=== PATIENT | male | born 1990 | race Caucasian/White ===

== ENCOUNTER 2016-07-15 18:36 | Inpatient (IN) | payer MEDICARE, MEDICAID ==
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
[2016-07-15] MEDS ORDERED: ACETAMINOPHEN TAB 325 MG TAB PO PRN (23:29)
[2016-07-15] MEDS ORDERED: MAG HYDROX/AL HYDROX/SIMETH 30 ML CUP PO PRN (23:29)
[2016-07-15] MEDS ORDERED: MAGNESIUM HYDROXIDE 2,400 MG/10 ML CUP PO PRN (23:29)
[2016-07-16] MEDS: LORazepam 1 MG TAB PO PRN ×3 (01:09→15:27)
[2016-07-16] MEDS: risperiDONE 2 MG TAB PO SCH ×2 (08:50→20:12)
[2016-07-16] MEDS: FAMOTIDINE 20 MG TAB PO SCH ×2 (08:50→20:11)
[2016-07-16 09:26] LABS: ALT 24 U/L (21-72); AST 25 U/L (17-59); Alkaline Phosphatase 110 U/L (38-126); Anion Gap 14 mmol/L; Blood Urea Nitrogen 12 mg/dL (9-20); Calcium 9.4 mg/dL (8.4-10.2); Carbon Dioxide 25 mmol/L (22-30); Chloride 100 mmol/L (98-107); Glucose 181 mg/dL (74-99); Non-African American GFR(MDRD) >60 (>60 ml/min/1.73 sqM); Potassium 3.8 mmol/L (3.5-5.1); Sodium 139 mmol/L (137-145); Total Bilirubin 0.9 mg/dL (0.2-1.3); Total Protein 7.5 g/dL (6.3-8.2)
[2016-07-16 09:32] LABS: Basophils % (A) 0 %; CH 28.3; CHCM 32.4; Eosinophils % (A) 1 %; HCT 45.4 % (39.0-53.0); HDW 2.53; HGB 14.7 gm/dL (13.0-17.5); Large Platelets Flag Moderate; Luc % (Auto) 1; Lymphocytes % (A) 15 %; MCH 28.5 pg (25.0-35.0); MCHC 32.5 g/dL (31.0-37.0); MCV 87.7 fL (80.0-100.0); Mean Platelet Volume 10.8; Monocytes # (A) 0.3 k/uL (0-1.0); Monocytes % (A) 4 %; Neutrophils # (A) 5.4 k/uL (1.3-7.7); Neutrophils % (A) 78 %; RBC 5.17 m/uL (4.30-5.90); RDW 15.1 % (11.5-15.5); WBC 6.9 k/uL (3.8-10.6); WBC (Perox) 6.66
[2016-07-16 09:54] LABS: Polychromasia Present
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
--- NOTE | 2016-07-16 12:44 | P.CONS ---
History of Present Illness - Reason for Consult Consult date: 07/16/16 Medical management - History of Present Illness Patient refuses to be seen by medical team. Past Medical History Past Medical History: No Reported History History of Any Multi-Drug Resistant Organisms: None Reported Additional Past Surgical History / Comment(s): Esophigial surgery Past Psychological History: ADD/ADHD, Bipolar, Depression Smoking Status: Never smoker Past Alcohol Use History: None Reported Past Drug Use History: None Reported Medications and Allergies Home Medications Medication Instructions Recorded Confirmed Type Ritalin Sr 20 Mg Tab 20 mg PO DAILY 01/18/16 07/15/16 History LORazepam [Ativan] 0.5 mg PO TID 07/15/16 07/15/16 History Ranitidine HCl 150 mg PO BID 07/15/16 07/15/16 History risperiDONE [RisperDAL] 2 mg PO HS 07/15/16 07/15/16 History risperiDONE [RisperDAL] 4 mg PO QAM 07/15/16 07/15/16 History Allergies Allergy/AdvReac Type Severity Reaction Status Date / Time Penicillins Allergy Rash/Hives Verified 07/15/16 19:23 Sulfa (Sulfonamide Allergy Rash/Hives Verified 07/15/16 19:23 Antibiotics) Physical Exam Vitals: Vital Signs Temp Pulse Pulse Resp BP BP Pulse Ox 07/16/16 03:41 91 16 117/70 07/15/16 22:54 97.7 F 93 16 134/79 96 07/15/16 22:25 98.1 F 92 18 127/88 100 Intake and Output 07/15/16 07/16/16 07/16/16 22:59 06:59 14:59 Other: Weight 70.76 kg 71.3 kg Patient Weight 07/17/16 06:59 Weight 71.3 kg Results CBC & Chem 7: 07/16/16 08:52 07/16/16 08:52 Labs: Abnormal Lab Results - Last 24 Hours (Table) 07/16/16 07/16/16 Range/Units 08:52 08:52 Plt Count 67 L (150-450) k/uL Glucose 181 H (74-99) mg/dL
[2016-07-16] MEDS: OLANZapine ODT 10 MG TAB PO PRN (21:07)
[2016-07-16] MEDS: cloNIDine HCL 0.1 MG TAB PO SCH (22:58)
[2016-07-16] MEDS: MIRTAZAPINE 15 MG TAB PO PRN (22:58)
[2016-07-17] MEDS: cloNIDine HCL 0.1 MG TAB PO SCH ×3 (08:43→20:48)
[2016-07-17] MEDS: FAMOTIDINE 20 MG TAB PO SCH ×2 (08:44→20:48)
[2016-07-17] MEDS: risperiDONE 2 MG TAB PO SCH ×2 (08:44→20:49)
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
[2016-07-17] MEDS: LORazepam 1 MG TAB PO PRN ×2 (13:46→23:59)
[2016-07-17] MEDS: OLANZapine ODT 10 MG TAB PO PRN (14:00)
[2016-07-17] MEDS: MIRTAZAPINE 15 MG TAB PO PRN (20:50)
[2016-07-18] MEDS ORDERED: WATER FOR INJECTION, STERILE 10 ML IV ONE ×2 (00:31→11:42)
[2016-07-18] MEDS ORDERED: ZIPRASIDONE 20 MG VIAL IM ONE ×2 (00:31→11:42)
[2016-07-18] MEDS: ZIPRASIDONE 20 MG VIAL IM PRN ×2 (00:31→11:42)
[2016-07-18] MEDS: cloNIDine HCL 0.1 MG TAB PO SCH ×3 (09:16→20:01)
[2016-07-18] MEDS: risperiDONE 2 MG TAB PO SCH ×2 (09:16→20:00)
[2016-07-18] MEDS: LORazepam 1 MG TAB PO PRN ×2 (09:16→16:16)
[2016-07-18] MEDS: FAMOTIDINE 20 MG TAB PO SCH ×2 (09:16→20:00)
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
[2016-07-18] MEDS: lamoTRIgine 25 MG TAB PO SCH ×2 (10:56→20:01)
[2016-07-18] MEDS ORDERED: LORazepam 2 MG/ML SYRINGE IM STA (11:56)
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
[2016-07-19] MEDS: cloNIDine HCL 0.1 MG TAB PO SCH ×3 (09:05→21:29)
[2016-07-19] MEDS: risperiDONE 2 MG TAB PO SCH ×2 (09:05→19:58)
[2016-07-19] MEDS: lamoTRIgine 25 MG TAB PO SCH ×2 (09:05→19:58)
[2016-07-19] MEDS: FAMOTIDINE 20 MG TAB PO SCH ×2 (09:06→19:58)
--- NOTE | 2016-07-19 09:46 | P.PN ---
Progress Note - Text Interval history: The patient is found in the hallway he follows me to an interview room. Yesterday staff informed me that the patient required use of restraints for acutely agitated behavior. He is not able to provide an explanation as to what made him upset and lacks insight into his choices. He states that he slept last night appetite is stable. Again he reports having another supportive conversation with his father. He states he will attend groups today. Mental status exam: The patient is alert he has a disheveled appearance his hair is not combed eye contact is poor. He has no spontaneous speech but does provide brief answers to questions asked. During the session he works on removing a piece of candy from a Trapper and is focused on that activity. He is dressed in a T-shirt and the same pajama bottoms. He reports his mood is "fine". He is not able to demonstrate insight into his impulsive aggressive behavior. Cognitively he is chronically impaired. He demonstrates no abnormal involuntary movements. He demonstrates no verbal or physical aggressiveness in the session area Plan: The patient will continue his current medication we have just recently added Lamictal. The patient's blood pressure again is elevated he remains tachycardic. He refuses an EKG that was recommended. We will contact the commercial lines assistant to see if there is a recommendation for controlling blood pressure and pulse better perhaps a beta ashely instead of Catapres. We will continue to monitor him for safety and provide reality orientation and encourage his appropriate participation in the milieu. He is not yet appropriate for discharge given his recent impulsive aggressive behavior.
[2016-07-19] MEDS: LORazepam 1 MG TAB PO PRN ×2 (14:16→22:37)
[2016-07-19] MEDS: MIRTAZAPINE 15 MG TAB PO PRN (22:37)
[2016-07-20] MEDS: lamoTRIgine 25 MG TAB PO SCH ×2 (08:50→20:31)
[2016-07-20] MEDS: cloNIDine HCL 0.1 MG TAB PO SCH ×3 (08:50→20:31)
[2016-07-20] MEDS: risperiDONE 2 MG TAB PO SCH ×2 (08:50→20:31)
[2016-07-20] MEDS: FAMOTIDINE 20 MG TAB PO SCH ×2 (08:50→20:31)
[2016-07-20] MEDS: LORazepam 1 MG TAB PO PRN (08:51)
--- NOTE | 2016-07-20 10:53 | P.PN ---
Progress Note - Text Interval history: The patient is found at the front desk manager he follows me to an interview room. He reports having some difficulty sleeping last night and subsequently he took a nap this morning. Appetite is stable. He reports having a supportive visit from his father last evening. He does look forward to going home when possible. Staff report no aggressive behavior yesterday or this morning. The patient continues to be compliant with medication. He has no medication questions he is reporting no side effects from the Lamictal we have initiated. Mental status exam: The patient has a disheveled appearance hygiene is fair eye contact is improved. Speech is mainly reactive to questions asked but he has some spontaneous speech. Affect remains bland. He reports no suicidal or homicidal ideation. He is endorsing no thoughts of anger or violence. He is endorsing no auditory or visual hallucinations. Insight and judgment are chronically impaired, cognitive abilities are chronically impaired. He demonstrates no verbal or physical aggressiveness during our session. Plan: The patient will continue on his current medications we will continue to monitor for safety he is encouraged to participate in the milieu. Social work has been in contact with his father who remained supportive. We will continue to assess his safety risk. Vital signs reviewed we are monitoring his tachycardia and blood pressure.
[2016-07-20] MEDS ORDERED: WATER FOR INJECTION, STERILE 10 ML IV ONE (14:18)
[2016-07-20] MEDS ORDERED: LORazepam 2 MG/ML SYRINGE IM STA ×2 (14:19→14:54)
[2016-07-20] MEDS ORDERED: LORazepam 2 MG/ML SYRINGE ONE (14:19)
[2016-07-20] MEDS: ZIPRASIDONE 20 MG VIAL IM PRN (14:19)
[2016-07-20] MEDS ORDERED: HALOPERIDOL LACTATE 5 MG/ML 1 ML VIAL IM STA ×2 (14:55)
[2016-07-20] MEDS ORDERED: HALOPERIDOL LACTATE 5 MG/ML 1 ML VIAL ONE (14:55)
[2016-07-20] MEDS: MIRTAZAPINE 15 MG TAB PO PRN (20:59)
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
[2016-07-21] MEDS: PROPRANOLOL 20 MG TAB PO SCH ×2 (09:00→20:59)
[2016-07-21] MEDS: risperiDONE 2 MG TAB PO SCH ×2 (09:00→20:59)
[2016-07-21] MEDS: lamoTRIgine 25 MG TAB PO SCH ×2 (09:00→20:59)
[2016-07-21] MEDS: FAMOTIDINE 20 MG TAB PO SCH ×2 (09:00→20:59)
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
[2016-07-21] MEDS: LORazepam 1 MG TAB PO PRN ×2 (15:26→21:53)
[2016-07-21] MEDS: MIRTAZAPINE 15 MG TAB PO PRN (23:33)
[2016-07-22] MEDS: ZIPRASIDONE 20 MG VIAL IM PRN (00:05)
[2016-07-22] MEDS ORDERED: ZIPRASIDONE 20 MG VIAL IM ONE (00:05)
[2016-07-22] MEDS ORDERED: WATER FOR INJECTION, STERILE 10 ML IV ONE (00:05)
[2016-07-22] MEDS: PROPRANOLOL 20 MG TAB PO SCH ×2 (08:40→20:57)
[2016-07-22] MEDS: lamoTRIgine 25 MG TAB PO SCH ×2 (08:41→20:57)
[2016-07-22] MEDS: risperiDONE 2 MG TAB PO SCH ×2 (08:41→20:57)
[2016-07-22] MEDS: FAMOTIDINE 20 MG TAB PO SCH ×2 (08:41→20:57)
--- NOTE | 2016-07-22 12:02 | P.PN ---
Progress Note - Text Interval history: Patient seen in cross coverage today for Dr. Rodriguez. He reports that he is having another good day today after having a good day yesterday. He inquires regarding when he can get out of the hospital. He reports that he slept about 6 hours last night and relays that he is eating well. Reports that he is getting along well with others today. He does not voice any adverse psychotropic medication side effects. Mental status exam: He is alert and cooperative with the interview. His affect overall is restricted. His mood seems to be doing well. He denies any hallucinations. He denies any thoughts of harm to self or others. He does not show any current agitation. Plan: Maintain current psychotropic medications. We'll monitor for any medication side effects. We'll monitor for any agitation. Will continue to cover this patient for Dr. Rodriguez through the weekend.
[2016-07-23] MEDS: LORazepam 1 MG TAB PO PRN ×2 (00:19→18:39)
[2016-07-23] MEDS: MIRTAZAPINE 15 MG TAB PO PRN (00:56)
[2016-07-23] MEDS: FAMOTIDINE 20 MG TAB PO SCH ×2 (08:43→20:39)
[2016-07-23] MEDS: risperiDONE 2 MG TAB PO SCH ×2 (08:43→20:38)
[2016-07-23] MEDS: PROPRANOLOL 20 MG TAB PO SCH ×2 (08:43→20:37)
[2016-07-23] MEDS: lamoTRIgine 25 MG TAB PO SCH ×2 (08:44→20:38)
--- NOTE | 2016-07-23 15:07 | P.PN ---
Progress Note - Text Interval history: Patient seen in cross coverage today for Dr. Rodriguez. He reports that he did sleep well last night after moving to the quiet room. He does not seem to voice any adverse psychotropic medication side effects. He seems to be getting along well with others. He does talk about wanting to be able to be discharged soon. New Mental status exam: He is alert and cooperative with the interview. His mood overall seems to be improved. He denies any thoughts of harm to self or others. He is not verbalize any hallucinations or jon delusions. He does not show any current agitation. Plan: We'll maintain current psychotropic medication regimen. We'll continue to monitor for any medication side effects and monitor for any agitation. Dr. Alcantara or colleague will resume care this patient starting tomorrow.
[2016-07-24] MEDS: FAMOTIDINE 20 MG TAB PO SCH ×2 (08:39→20:08)
[2016-07-24] MEDS: lamoTRIgine 25 MG TAB PO SCH ×2 (08:39→20:08)
[2016-07-24] MEDS: risperiDONE 2 MG TAB PO SCH ×2 (08:39→20:08)
[2016-07-24] MEDS: PROPRANOLOL 20 MG TAB PO SCH ×2 (08:39→20:08)
[2016-07-24] MEDS: LORazepam 1 MG TAB PO PRN ×2 (15:08→23:01)
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
[2016-07-24] MEDS: MIRTAZAPINE 15 MG TAB PO PRN (20:08)
[2016-07-25 06:26] VITALS: BP 133/89; PULSE 91; RESP 16; TEMP 98.3
[2016-07-25] MEDS: PROPRANOLOL 20 MG TAB PO SCH (09:14)
[2016-07-25] MEDS: risperiDONE 2 MG TAB PO SCH (09:14)
[2016-07-25] MEDS: lamoTRIgine 25 MG TAB PO SCH (09:14)
[2016-07-25] MEDS: FAMOTIDINE 20 MG TAB PO SCH (09:14)
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
== END 2016-07-25 11:43 | disposition home or self-care (01) | DRG 885 ==
LOC: EEVIPCON 18:36 → EC 18:36 → 3MHU 22:17
PROVIDERS: ADMIT Psychiatry & Neurology Psychiatry; ATTEND Psychiatry & Neurology Psychiatry
DX: F31.9 Bipolar disorder, unspecified (principal); Z78.1 Physical restraint status; F41.9 Anxiety disorder, unspecified; F63.81 Intermittent explosive disorder; F90.9 Attention-deficit hyperactivity disorder, unspecified type; M25.539 Pain in unspecified wrist; R00.0 Tachycardia, unspecified; R45.850 Homicidal ideations; G47.9 Sleep disorder, unspecified; R45.1 Restlessness and agitation; S51.812A Laceration without foreign body of left forearm, initial encounter; F09 Unspecified mental disorder due to known physiological condition; R03.0 Elevated blood-pressure reading, without diagnosis of hypertension; Z88.0 Allergy status to penicillin; Z81.8 Family history of other mental and behavioral disorders; Z79.899 Other long term (current) drug therapy; Z88.2 Allergy status to sulfonamides; Z91.5 Personal history of self-harm; Z56.0 Unemployment, unspecified; Z82.0 Family history of epilepsy and other diseases of the nervous system; Z71.6 Tobacco abuse counseling; Z91.19 Patient's noncompliance with other medical treatment and regimen; X78.8XXA Intentional self-harm by other sharp object, initial encounter; Y93.9 Activity, unspecified; Y92.019 Unspecified place in single-family (private) house as the place of occurrence of the external cause
CPT/HCPCS: 80053; 80306; 82075; 84443; 85025; 99285

== ENCOUNTER 2016-07-26 12:00 | Inpatient (IN) | payer MEDICARE, MEDICAID ==
--- NOTE | 2016-07-26 13:00 | ED ---
General Adult HPI - General Chief complaint: Psychiatric Symptoms Stated complaint: MENTAL HEALTH Time Seen by Provider: 07/26/16 12:49 Source: patient, family, RN notes reviewed Mode of arrival: ambulatory Limitations: no limitations - History of Present Illness Initial comments: Patient is a 25-year-old male presenting with family for anger problems. Patient was just discharged from mental health facility. Patient feels his meds are not working. Patient has had anger problems and has made threats. Patient states he had some suicidal thoughts yesterday however decided it would not be worth acting on. No hallucinations. No physical complaints. No alcohol or street drug use. - Related Data Home Medications Medication Instructions Recorded Confirmed Ranitidine HCl 150 mg PO BID 07/15/16 07/26/16 Atomoxetine HCl [Strattera] 100 mg PO DAILY 07/26/16 07/26/16 Previous Rx's Medication Instructions Recorded Loratadine [Claritin] 10 mg PO DAILY #30 tab 01/26/16 Montelukast [Singulair] 10 mg PO HS #30 tab 01/26/16 LORazepam [Ativan] 0.5 mg PO TID #45 tablet 07/25/16 Mirtazapine [Remeron] 15 mg PO HS PRN #30 tab 07/25/16 Propranolol [Inderal] 20 mg PO BID #60 tab 07/25/16 lamoTRIgine [LaMICtal] 25 mg PO BID #60 tab 07/25/16 risperiDONE [RisperDAL] 2 mg PO HS #30 tab 07/25/16 risperiDONE [RisperDAL] 4 mg PO QAM #60 tab 07/25/16 Allergies Allergy/AdvReac Type Severity Reaction Status Date / Time Penicillins Allergy Rash/Hives Verified 07/26/16 12:51 Sulfa (Sulfonamide Allergy Rash/Hives Verified 07/26/16 12:51 Antibiotics) Review of Systems ROS Statement: Those systems with pertinent positive or pertinent negative responses have been documented in the HPI. ROS Other: All systems not noted in ROS Statement are negative. Constitutional: Denies: fever Eyes: Denies: eye pain ENT: Denies: ear pain Respiratory: Denies: cough Cardiovascular: Denies: chest pain Endocrine: Denies: fatigue Gastrointestinal: Denies: abdominal pain Genitourinary: Denies: dysuria Musculoskeletal: Denies: back pain Skin: Denies: rash Psychiatric: Reports: other (Agitation) Past Medical History Past Medical History: No Reported History History of Any Multi-Drug Resistant Organisms: None Reported Additional Past Surgical History / Comment(s): Esophigial surgery Past Psychological History: ADD/ADHD, Bipolar, Depression Smoking Status: Never smoker Past Alcohol Use History: None Reported Past Drug Use History: None Reported General Exam Limitations: no limitations General appearance: alert, in no apparent distress Head exam: Present: atraumatic Eye exam: Present: normal appearance ENT exam: Present: normal exam Neck exam: Present: normal inspection Respiratory exam: Present: normal lung sounds bilaterally Cardiovascular Exam: Present: regular rate, normal rhythm GI/Abdominal exam: Present: soft. Absent: tenderness Extremities exam: Present: normal inspection Neurological exam: Present: alert Psychiatric exam: Present: normal affect, normal mood Skin exam: Absent: rash Course Vital Signs 07/26/16 12:23 Temperature 98.3 F Pulse Rate 80 Respiratory 18 Rate Blood Pressure 113/78 O2 Sat by Pulse 97 Oximetry Procedures - Restraint - Face to Face Restraint Occurrence 1 Patient's Immediate Situation: Endangers self safety, Endangers others' safety, Endangers staff safety, Violent behavior Patient's Reaction to the Intervention: Hostile Patient's Medical & Behavioral Condition: Alert Need to Continue or Terminate Restraint or Seclusion: Continue Face to Face Eval of Restraint Date: 07/26/16 Face to Face Eval of Restraint Time: 13:13 Medical Decision Making - Medical Decision Making Patient was seen by mental health services who will admit. Positive clinical certificate completed. - Lab Data Lab Results 07/26/16 Range/Units 14:30 Urine Opiates Screen Not Detected (NotDetected) Ur Oxycodone Screen Not Detected (NotDetected) Urine Methadone Screen Not Detected (NotDetected) Ur Propoxyphene Screen Not Detected (NotDetected) Ur Barbiturates Screen Not Detected (NotDetected) U Tricyclic Antidepress Not Detected (NotDetected) Ur Phencyclidine Scrn Not Detected (NotDetected) Ur Amphetamines Screen Not Detected (NotDetected) U Methamphetamines Scrn Not Detected (NotDetected) U Benzodiazepines Scrn Not Detected (NotDetected) Urine Cocaine Screen Not Detected (NotDetected) U Marijuana (THC) Screen Not Detected (NotDetected) Disposition Clinical Impression: Mood disorder, Intermittent explosive disorder, Acute psychosis Disposition: TRANSFER TO PSYCH HOSP/UNIT
[2016-07-26] MEDS ORDERED: MAG HYDROX/AL HYDROX/SIMETH 30 ML CUP PO PRN (20:15)
[2016-07-26] MEDS ORDERED: MAGNESIUM HYDROXIDE 2,400 MG/10 ML CUP PO PRN (20:15)
[2016-07-26] MEDS ORDERED: ZIPRASIDONE 20 MG VIAL IM PRN (20:15)
[2016-07-26] MEDS ORDERED: ACETAMINOPHEN TAB 325 MG TAB PO PRN (20:15)
[2016-07-26] MEDS ORDERED: MIRTAZAPINE 15 MG TAB PO PRN (20:24)
[2016-07-26] MEDS ORDERED: LORazepam 2 MG/ML SYRINGE IM PRN (20:26)
[2016-07-26] MEDS: FAMOTIDINE 20 MG TAB PO SCH (21:11)
[2016-07-26] MEDS: lamoTRIgine 25 MG TAB PO SCH (21:11)
[2016-07-26] MEDS: risperiDONE 2 MG TAB PO SCH (21:12)
[2016-07-26] MEDS: PROPRANOLOL 20 MG TAB PO SCH (21:12)
[2016-07-26] MEDS: MONTELUKAST 10 MG TAB PO SCH (21:12)
[2016-07-27] MEDS: FAMOTIDINE 20 MG TAB PO SCH ×2 (08:18→21:00)
[2016-07-27] MEDS: risperiDONE 2 MG TAB PO SCH ×2 (08:19→20:57)
[2016-07-27] MEDS: PROPRANOLOL 20 MG TAB PO SCH ×3 (08:20→21:01)
[2016-07-27] MEDS: lamoTRIgine 25 MG TAB PO SCH (08:20)
[2016-07-27] MEDS: LORATADINE 10 MG TAB PO SCH (08:20)
--- NOTE | 2016-07-27 10:22 | P.HP ---
Psychiatric H&P - . History & Physical: Allergies Allergy/AdvReac Type Severity Reaction Status Date / Time Penicillins Allergy Rash/Hives Verified 07/26/16 12:51 Sulfa (Sulfonamide Allergy Rash/Hives Verified 07/26/16 12:51 Antibiotics) Vital Signs Temp 98.3 F 07/26/16 20:28 Pulse 110 H 07/26/16 20:28 Resp 18 07/26/16 20:28 BP 163/100 07/26/16 20:28 Pulse Ox 97 07/26/16 12:23 Intake & Output 07/26/16 07/27/16 07/27/16 18:59 06:59 18:59 Weight 71.67 kg Laboratory Last Values Urine Opiates Screen Not Detected (NotDetected) 07/26/16 14:30 Ur Oxycodone Screen Not Detected (NotDetected) 07/26/16 14:30 Urine Methadone Screen Not Detected (NotDetected) 07/26/16 14:30 Ur Propoxyphene Screen Not Detected (NotDetected) 07/26/16 14:30 Ur Barbiturates Screen Not Detected (NotDetected) 07/26/16 14:30 U Tricyclic Antidepress Not Detected (NotDetected) 07/26/16 14:30 Ur Phencyclidine Scrn Not Detected (NotDetected) 07/26/16 14:30 Ur Amphetamines Screen Not Detected (NotDetected) 07/26/16 14:30 U Methamphetamines Scrn Not Detected (NotDetected) 07/26/16 14:30 U Benzodiazepines Scrn Not Detected (NotDetected) 07/26/16 14:30 Urine Cocaine Screen Not Detected (NotDetected) 07/26/16 14:30 U Marijuana (THC) Screen Not Detected (NotDetected) 07/26/16 14:30 07/27/16 10:07 IDENTIFYING DATA: This patient is a 25-year-old single male who was readmitted to the mental health unit through the emergency room. HPI: The patient was just recently discharged from the mental health unit and re -presented with symptoms of aggression at home. He was brought in by family they stated he was making threats of violence and was agitated. The patient was able to demonstrate appropriate behavior for several days prior to discharge. Staff informed me that he had made threatening statements towards me since being readmitted. This morning he stated "you have me on too many pills". We discussed the purpose of each medication and the fact that I did confer with his outpatient psychiatrist during the last admission. He initially refused to speak with me in an interview room but later agreed. The patient's discussed been unhappy with his placement with his father. We had discussed his living arrangement several times during the last admission and he did not report been unhappy in that environment area he is now stating that he wants to go to was mother's home but family were not agreeable with that request yesterday. The patient is known to have significant cognitive impairment, history of intermittent explosive disorder, and history of mood symptoms. He is reporting no auditory or visual hallucinations he is endorsing no specific delusions. He reports his mood is been frustrated and angry. He does not feel sad. He is endorsing no anxiety at this time. He has been readmitted for safety reasons and we will consider a change of residence for him during this admission. PAST PSYCHIATRIC HISTORY: The patient has had at least 5 prior admissions the first one was at age 16. [facility] for medication management. He has been tried on numerous psychotropic medications and during the last admission we continued his Risperdal 4 mg in the morning 2 mg at bedtime we initiated Inderal 20 mg twice daily with a plan of titrating that further and we initiated Lamictal 25 mg twice daily. Remeron was initiated at bedtime. He also uses Strattera 100 mg daily at home and Ativan 0.5 mg 3 times daily. It is unknown if he has had any suicide attempts. PMH: None reported ALLERGIES: Penicillin and sulfa MEDICATIONS: As above CHEMICAL DEPENDENCY HISTORY: He reports no use of alcohol marijuana or any other illicit drug. He has never been placed in residential treatment. FAMILY PSYCHIATRIC HISTORY: The patient has previously reported that his mother suffers from depression and ADHD he states 2 cousins committed suicide one by overdose and the other by hanging FAMILY CHEMICAL DEPENDENCY HISTORY: Unknown SOCIAL HISTORY: The patient is 25 years old, he's never been he has no children he is unemployed. He is on a disability income. He resides with his father and appears to listen to music. He expresses an interest in art and enjoyed a [employer] class that he took in the past. No legal history that he reports no abuse history that he reports. There was some mention during last admission that his father can have a "short fuse". MENTAL STATUS EXAM: The patient is alert he has a disheveled appearance his hairs overgrown he is dressed in his own clothing. Eye contact is poor. Speech can be fluent it is abrupt at times because of his cognitive impairment he has difficulty modulating the tone at times. He does make blunt statements. He endorses an angry mood with frustration. He states "my medications don't work" earlier this morning he is observed hitting the table with his hand and making aggressive statements but that has not continued and he is responsive to supportive interventions. Insight and judgment are poor. He continues to struggle with impulsive aggressiveness. This behavior often does not cause self injury but is a demonstration of his mood. He does make salacious statements at times to indicate his frustration and does seem to respond to having those concerns validated in an appropriate manner. He is endorsing no auditory or visual hallucinations he is reporting no specific delusions. He demonstrates no abnormal involuntary movements. He is oriented to person place and date. He refuses to engage in any other cognitive testing other than spelling world forward. STRENGTHS/WEAKNESSES: Income, housing, family support, outpatient care with [facility] weaknesses cognitive impairment poor coping skills INTELLECTUAL FUNCTIONING: Below average IMPRESSIONS: [] 1. Depression unspecified, intermittent explosive disorder, cognitive impairment 2. Psychosocial dysfunction due to impulsive aggressive speech and actions PLAN: The patient has been admitted to the mental health unit for his impulsive aggressive behavior and speech. I have titrated the Inderal to 20 mg 3 times daily we will monitor his vital signs this will be held for any bradycardia or hypotension. Lamictal will be increased to 100 mg daily. He will continue on Risperdal 4 mg in the morning 2 mg at bedtime. At this point I will discontinue the Remeron in case it is activating him and he is concerned about being on too many medications. Our goal is to control mood swings irritability aggressive speech and behavior. We will consider a change of residence for him his father is his guardian. Social work will meet with the patient to complete a psychosocial assessment. The patient will be evaluated by the operator for routine medical exam. We will provide reality orientation we will monitor him for safety.
[2016-07-27] MEDS: LORazepam 1 MG TAB PO PRN ×2 (12:21→22:18)
--- NOTE | 2016-07-27 15:11 | P.CONS ---
History of Present Illness - Reason for Consult Consult date: 07/27/16 Medical management - History of Present Illness This is a 25-year-old male patient of Dr. Granados with a past medical history of ADHD, bipolar, depression, intellectual disability. Patient states that his medications were not working and he denies being suicidal or depressed. Patient was brought in to [facility] by police. Urine drug screen was negative. Patient has been admitted to the mental health unit. Review of Systems All systems: negative Constitutional: Denies chills, Denies fever Eyes: denies blurred vision, denies pain Ears, nose, mouth and throat: Denies headache, Denies sore throat Cardiovascular: Denies chest pain, Denies shortness of breath Respiratory: Denies cough Gastrointestinal: Denies abdominal pain, Denies diarrhea, Denies nausea, Denies vomiting Musculoskeletal: Denies myalgias Integumentary: Denies pruritus, Denies rash Neurological: Denies numbness, Denies weakness Psychiatric: Denies anxiety, Denies depression Endocrine: Denies fatigue, Denies weight change Past Medical History Past Medical History: No Reported History History of Any Multi-Drug Resistant Organisms: None Reported Additional Past Surgical History / Comment(s): Esophigial surgery Past Psychological History: ADD/ADHD, Bipolar, Depression Smoking Status: Never smoker Past Alcohol Use History: None Reported Additional Past Alcohol Use History / Comment(s): Patient is a lifelong nonsmoker. He denies any medical marijuana, marijuana, street drug or alcohol use. Past Drug Use History: None Reported - Past Family History Father Family Medical History: Pulmonary Embolus Additional Family Medical History / Comment(s): Father is alive at age 60 with no major medical problems. Mother Additional Family Medical History / Comment(s): Patient does not know his mother but no she has an alcohol abuse problem and that she is alive. Brother(s) Additional Family Medical History / Comment(s): Patient has 1 brother that of SIDS. He also has 3 siblings which she does not know their medical history. Medications and Allergies Home Medications Medication Instructions Recorded Confirmed Type Ranitidine HCl 150 mg PO BID 07/15/16 07/26/16 History Atomoxetine HCl [Strattera] 100 mg PO DAILY 07/26/16 07/26/16 History Allergies Allergy/AdvReac Type Severity Reaction Status Date / Time Penicillins Allergy Rash/Hives Verified 07/26/16 12:51 Sulfa (Sulfonamide Allergy Rash/Hives Verified 07/26/16 12:51 Antibiotics) Physical Exam Vitals: Vital Signs Temp Pulse Resp BP 07/26/16 20:28 98.3 F 110 H 18 163/100 Intake and Output 07/26/16 07/27/16 07/27/16 22:59 06:59 14:59 Other: Weight 71.67 kg Gen: This is a 25-year-old male. He is cooperative. HEENT: Head is atraumatic, normocephalic. Pupils equal, round. Sclerae is anicteric. NECK: Supple. No JVD. No lymphadenopathy. No thyromegaly. LUNGS: Clear to auscultation. No wheezes or rhonchi. No intercostal retractions. HEART: Regular rate and rhythm. No murmur. ABDOMEN: Soft. Bowel sounds are present. No masses. No tenderness. EXTREMITIES: No pedal edema. No calf tenderness. NEUROLOGICAL: Patient is awake, alert and oriented x3. Cranial nerves 2 through 12 are grossly intact. Assessment and Plan Plan: 1. Depression. Patient admitted to the mental health unit. Continue current plan of care. 2. Seasonal ALLERGIES. Continue Claritin and Singulair. 3. Hypertension. Continue Inderal 20 mg 3 times daily. 4. Gastroesophageal reflux disease. Continue Pepcid. 5. No tobacco use. No need for nicotine patch. Impression and plan of care have been directed as dictated by the signing physician. Donna Mata nurse practitioner acting as scribe for signing physician. Time with Patient: Greater than 30
[2016-07-27] MEDS: MONTELUKAST 10 MG TAB PO SCH (20:57)
[2016-07-28] MEDS: PROPRANOLOL 20 MG TAB PO SCH ×3 (09:13→20:17)
[2016-07-28] MEDS: risperiDONE 2 MG TAB PO SCH ×2 (09:13→20:16)
[2016-07-28] MEDS: LORATADINE 10 MG TAB PO SCH (09:13)
[2016-07-28] MEDS: lamoTRIgine 100 MG TAB PO SCH (09:13)
[2016-07-28] MEDS: FAMOTIDINE 20 MG TAB PO SCH ×2 (09:13→20:16)
[2016-07-28] MEDS: LORazepam 1 MG TAB PO PRN ×2 (09:14→19:52)
--- NOTE | 2016-07-28 10:24 | P.PN ---
Progress Note - Text Interval history: The patient is found in the hallway he follows me to an interview room. He states that his mood is better. He inquires as to when he can be discharged and he would prefer to go to his mother's father's order [facility] only if necessary. So far other has been no report of agitated behavior yesterday but I will discuss his behavior during team meeting this morning. He initially refused medications yesterday but he states he is compliant with them now. He did have a deferral conference with his trademark attorney this morning and it appears he deferred. He states that he did not sleep as well without the Remeron and asks that that be reordered. Mental status exam: The patient is alert his grooming is improved eye contact is improved. He makes attempts at using humor today. He reports his mood is good. He demonstrates no verbal or physical aggressiveness but typically he does not in the sessions. We discussed the need for him to verbalize concerns before acting on them physically. He reports no acute suicidal or homicidal ideation. He is endorsing no auditory or visual hallucinations he is endorsing no specific delusions. Chronically he does have a suspicious nature. No abnormal involuntary movements observed. Insight and judgment chronically limited. Intellectually he's chronically limited. Plan: The patient will continue on his current medications we will reorder the Remeron 15 mg at bedtime. Vital signs are reviewed he is tolerating the propranolol with the increased dose. Lamictal has recently been increased. We will continue to monitor him for safety and encourage him to verbalize concerns versus acting on them physically. We will explore appropriate placement options. His father who is his guardian states that his mother's residence is not appropriate.
[2016-07-28] MEDS: MONTELUKAST 10 MG TAB PO SCH (20:16)
[2016-07-28] MEDS: MIRTAZAPINE 15 MG TAB PO SCH (20:16)
[2016-07-29] MEDS: lamoTRIgine 100 MG TAB PO SCH (08:53)
[2016-07-29] MEDS: FAMOTIDINE 20 MG TAB PO SCH ×2 (08:53→21:05)
[2016-07-29] MEDS: PROPRANOLOL 20 MG TAB PO SCH ×3 (08:53→21:05)
[2016-07-29] MEDS: risperiDONE 2 MG TAB PO SCH ×2 (08:53→21:05)
[2016-07-29] MEDS: LORATADINE 10 MG TAB PO SCH (08:53)
[2016-07-29] MEDS: LORazepam 1 MG TAB PO PRN (15:25)
--- NOTE | 2016-07-29 19:39 | PN ---
DATE OF SERVICE: 07/29/2016 CHIEF COMPLAINT: The patient was admitted following a recent discharge due to problems with aggression at home. He was making threats of violence. He was agitated. INTERVAL HISTORY: Patient has been doing fairly well. He has had some ups and downs. He has been able to come to staff when he has had anxiety and agitation. He has received Ativan, which seems to help him. He received a dose of Ativan last evening around 8 p.m. he received another dose today around 3. He has attended some groups, though probably misses more than he makes. He is out on the unit. He will wander. He interacts with others. He seems to be in a fairly good mood this afternoon. He has not had change in his general health. He tolerates his psychotropic medications. MENTAL STATUS: Patient gave good eye contact. Psychomotor activity was a little restless. Speech was clear. He answered questions with brief responses. He did not say a lot. He had a good range of affect. He smiled. He was friendly. His mood was even. He was not distressed. ASSESSMENT: I will continue the current diagnosis and treatment plan. Will continue to make efforts to engage the patient in individual and group therapeutic activities. Will continue psychotropic medications the same, including Lamictal 100 mg a day and Risperdal 4 mg in the a.m. 2 mg in the p.m. He will also continue Remeron 15 mg at bedtime. We will continue to focus on stabilization and discharge planning.
[2016-07-29] MEDS: MONTELUKAST 10 MG TAB PO SCH (21:05)
[2016-07-29] MEDS: MIRTAZAPINE 15 MG TAB PO SCH (21:05)
[2016-07-30] MEDS: LORATADINE 10 MG TAB PO SCH (08:48)
[2016-07-30] MEDS: lamoTRIgine 100 MG TAB PO SCH (08:50)
[2016-07-30] MEDS: FAMOTIDINE 20 MG TAB PO SCH ×2 (08:50→20:56)
[2016-07-30] MEDS: PROPRANOLOL 20 MG TAB PO SCH ×3 (08:50→20:56)
[2016-07-30] MEDS: risperiDONE 2 MG TAB PO SCH ×2 (08:50→20:56)
[2016-07-30] MEDS: LORazepam 1 MG TAB PO PRN ×2 (12:16→21:45)
[2016-07-30 17:34] LABS: Appearance,Urine Clear (Clear); Bilirubin,Urine Negative (Negative); Glucose,Urine (UA) Negative (Negative); Ketones,Urine Negative (Negative); Leukocyte Esterase,Urine Negative (Negative); Nitrite,Urine Negative (Negative); Protein,Urine Negative (Negative); UA Billing (MACRO vs. MICRO) CHEM; Urobilinogen,Urine <2.0 mg/dL (<2.0)
[2016-07-30] MEDS: MONTELUKAST 10 MG TAB PO SCH (20:56)
[2016-07-30] MEDS: MIRTAZAPINE 15 MG TAB PO SCH (20:56)
--- NOTE | 2016-07-31 07:06 | PN ---
DATE OF SERVICE: 07/30/2016 CHIEF COMPLAINT: Patient was admitted following a recent discharge due to problems with aggression at home. He was making threats of violence. He was agitated. INTERVAL HISTORY: Patient has been doing fairly well. He had a quiet evening last night. He slept well. Today he has been up and about. He attends groups. He has been appropriate in groups. He does engage in some personal activities which he seems to be pleased with. He maintains an even mood. He has been receiving about one Ativan p.r.n. dose per day, which helps. He gets himself around the unit. He will interact some with others. He has not had any behavioral issues. He has not had change in his general health. He tolerates his psychotropic medications. MENTAL STATUS: Patient had good eye contact. Psychomotor activity was normal. His thoughts were clear. He approached me and wanted to show some coloring that he had been doing. He had done quite a detailed job on a line drawing with what appeared to be a good hand control and a wide range of colors. He was friendly. He shook my hand at the end of the interview. He had a good affect. His mood was even. He was not distressed. There was no indication of thought disorder. ASSESSMENT: I will continue the current diagnosis and treatment plan. We will continue psychotropic medications the same. Patient has been making good progress. I would anticipate discharge soon. Will coordinate with outpatient resources for followup care.
[2016-07-31] MEDS: risperiDONE 2 MG TAB PO SCH ×2 (09:13→20:04)
[2016-07-31] MEDS: FAMOTIDINE 20 MG TAB PO SCH ×2 (09:14→20:04)
[2016-07-31] MEDS: lamoTRIgine 100 MG TAB PO SCH (09:14)
[2016-07-31] MEDS: LORATADINE 10 MG TAB PO SCH (09:14)
[2016-07-31] MEDS: PROPRANOLOL 20 MG TAB PO SCH ×3 (09:14→20:04)
--- NOTE | 2016-07-31 10:18 | P.PN ---
Progress Note - Text Interval history: The patient is found in his room he follows me to an interview room. He reports that he is doing fine staff report that there have been no behavioral issues over the weekend. He has been compliant with his medications. He is interested in being discharged and is aware that the plan is to temporarily placed him at a senior living. He has no questions regarding his medication. He endorses no feelings of anger. Mental status exam: The patient is a disheveled male he is dressed in his own clothing. Eye contact is intermittent. He has some spontaneous speech but mainly answers questions asked. Insight and judgment and cognitive abilities chronically limited. He is reporting no auditory or visual hallucinations he is endorsing no specific delusions. He is reporting no suicidal or homicidal ideation intent or plan. The patient does have a long history of impulsive aggressive actions but he has been controlling Cruz over the last several days. Plan: The patient will continue on his current medications during this admission we have titrated his propranolol and increased his Lamictal. We are exploring senior living placement. We will continue to monitor him for safety and encourage his participation in the milieu.
[2016-07-31] MEDS: MIRTAZAPINE 15 MG TAB PO SCH (20:04)
[2016-07-31] MEDS: MONTELUKAST 10 MG TAB PO SCH (20:05)
[2016-08-01] MEDS: lamoTRIgine 100 MG TAB PO SCH (08:53)
[2016-08-01] MEDS: PROPRANOLOL 20 MG TAB PO SCH ×3 (08:53→20:55)
[2016-08-01] MEDS: LORATADINE 10 MG TAB PO SCH (08:53)
[2016-08-01] MEDS: FAMOTIDINE 20 MG TAB PO SCH ×2 (08:53→20:54)
[2016-08-01] MEDS: risperiDONE 2 MG TAB PO SCH ×2 (08:54→20:54)
--- NOTE | 2016-08-01 09:36 | P.PN ---
Progress Note - Text Interval history: The patient is found in the hallway he follows me to an interview room. He reports his mood is been "fine". There have been no reports of any agitated behavior. He states he is sleeping at night appetite is stable. He continues to be focused on discharge plans and he is aware that we are seeking a correction bed. He has no questions related to his medications. Vital signs are reviewed. His heart rate and blood pressure have responded nicely to the propranolol. Mental status exam: The patient is alert he is dressed in his own clothing he has a disheveled appearance. Affect is brighter he demonstrates some brief smiling. Eye contact is improved. He reports a mood that is "fine". He is reporting no suicidal or homicidal ideation intent or plan. He is endorsing no symptoms of psychosis. Insight and judgment chronically impaired intellectually chronically impaired. He is oriented to person place and date. He demonstrates no verbal or physical aggressiveness. No abnormal involuntary movements observed. Plan: The patient will continue on his current medication we will continue to monitor him for safety and encourage his participation in the milieu. It appears he is stabilizing we continue to search for correction placement.
[2016-08-01] MEDS: LORazepam 1 MG TAB PO PRN ×2 (12:30→20:56)
[2016-08-01] MEDS: MIRTAZAPINE 15 MG TAB PO SCH (20:54)
[2016-08-01] MEDS: MONTELUKAST 10 MG TAB PO SCH (20:54)
--- NOTE | 2016-08-02 08:58 | P.PN ---
Progress Note - Text Interval history: The patient is found in his room he follows me to an interview room. He states his mood is fine he continues to be focused on a discharge date. We continue to await input from [facility] regarding detention placement. He states he's been able to sleep at night appetite stable. He has been attending some groups. Staff report no aggressive behavior over the last 24 hours. He has demonstrated no aggressive behaviors over the past several days. He has no questions regarding his medications. Vital signs reviewed. Mental status exam: The patient is a disheveled male he is dressed in his own clothing eye contact is intermittent. Speech is not spontaneous but he does provide appropriate answers to questions asked. He demonstrates no abnormal involuntary movements he demonstrates no verbal or physical aggressiveness. He is reporting no aggressive thoughts or irritability currently. He denies having any suicidal or homicidal ideation. He is endorsing no auditory or visual hallucinations he is endorsing no specific delusions. Insight and judgment chronically limited cognitively chronically limited. Affect is bland. Plan: The patient will continue on his current medications. We will continue to monitor him for safety. I anticipate he will be appropriate for discharge by the time a detention bed is available.
[2016-08-02] MEDS: LORATADINE 10 MG TAB PO SCH (09:57)
[2016-08-02] MEDS: risperiDONE 2 MG TAB PO SCH ×2 (09:57→20:10)
[2016-08-02] MEDS: FAMOTIDINE 20 MG TAB PO SCH ×2 (09:57→20:10)
[2016-08-02] MEDS: lamoTRIgine 100 MG TAB PO SCH (09:57)
[2016-08-02] MEDS: PROPRANOLOL 20 MG TAB PO SCH ×3 (09:58→20:09)
[2016-08-02] MEDS: LORazepam 1 MG TAB PO PRN ×2 (11:21→20:12)
[2016-08-02] MEDS: MIRTAZAPINE 15 MG TAB PO SCH (20:10)
[2016-08-02] MEDS: MONTELUKAST 10 MG TAB PO SCH (20:32)
--- NOTE | 2016-08-03 11:23 | P.PN ---
Progress Note - Text Interval history: The patient is found in his room. He reports no interval change. Staff report that he has been able to maintain appropriate behavior. He selectively attended groups. He has been compliant with his medication. We continue to await [facility] placement. Mental status exam: The patient is alert he is dressed in his own clothing he has a disheveled appearance hygiene is adequate. Eye contact is intermittent. Speech is mainly reactive to questions asked. He is endorsing no thoughts of harming himself or others. He is endorsing no auditory or visual hallucinations or specific delusions. Insight and judgment chronically limited. He demonstrates no verbal or physical aggressiveness during our session. Plan: The patient will continue on his current psychotropic medications. We will continue to monitor him for safety. He requires [facility] placement upon discharge. Vital signs reviewed.
[2016-08-03] MEDS: lamoTRIgine 100 MG TAB PO SCH (11:55)
[2016-08-03] MEDS: PROPRANOLOL 20 MG TAB PO SCH ×3 (11:55→21:10)
[2016-08-03] MEDS: LORATADINE 10 MG TAB PO SCH (11:55)
[2016-08-03] MEDS: risperiDONE 2 MG TAB PO SCH ×2 (11:55→21:09)
[2016-08-03] MEDS: FAMOTIDINE 20 MG TAB PO SCH ×2 (11:55→21:08)
[2016-08-03] MEDS: LORazepam 1 MG TAB PO PRN (17:27)
[2016-08-03] MEDS: MIRTAZAPINE 15 MG TAB PO SCH (21:08)
[2016-08-03] MEDS: MONTELUKAST 10 MG TAB PO SCH (21:09)
[2016-08-04] MEDS: FAMOTIDINE 20 MG TAB PO SCH ×2 (08:36→19:58)
[2016-08-04] MEDS: LORATADINE 10 MG TAB PO SCH (08:36)
[2016-08-04] MEDS: lamoTRIgine 100 MG TAB PO SCH (08:36)
[2016-08-04] MEDS: PROPRANOLOL 20 MG TAB PO SCH ×3 (08:37→19:58)
[2016-08-04] MEDS: risperiDONE 2 MG TAB PO SCH ×2 (08:37→19:58)
--- NOTE | 2016-08-04 10:07 | P.PN ---
Progress Note - Text Interval history: The patient is found in his room. He prefers to speak in his room today versus an interview room. He reports things are "fine". He selectively attend groups. He reports appetite and sleep are stable. There have been no reports of any agitated behavior. He continues to comply with his medications he has no questions regarding his medications. Vital signs reviewed. Mental status exam: The patient is alert he is lying in bed he makes eye contact. Speech is fluent nonspontaneous but does respond to questions asked. He is reporting no suicidal or homicidal ideation intent or plan. Historically he struggles with impulsive aggressive feelings but he reports no irritability or aggressive feelings at this time. He is endorsing no auditory or visual hallucinations no specific delusions. He does not appear to be experiencing any symptoms of psychosis. He demonstrates no verbal or physical aggressiveness during our meeting. Insight and judgment chronically impaired. Plan: The patient will continue on his current psychotropic medications. We will consider titrating the Lamictal further if needed. He has been doing well over the course of this week in terms of managing his behavior. We continue to seek [facility] placement when a bed becomes available. We will continue to monitor him for safety. He is encouraged to continue utilizing coping skills he is developing during the hospitalization.
[2016-08-04] MEDS: LORazepam 1 MG TAB PO PRN (19:58)
[2016-08-04] MEDS: MONTELUKAST 10 MG TAB PO SCH (19:58)
[2016-08-04] MEDS: MIRTAZAPINE 15 MG TAB PO SCH (19:58)
[2016-08-05] MEDS: lamoTRIgine 100 MG TAB PO SCH (10:09)
[2016-08-05] MEDS: LORATADINE 10 MG TAB PO SCH (10:09)
[2016-08-05] MEDS: FAMOTIDINE 20 MG TAB PO SCH ×2 (10:09→21:20)
[2016-08-05] MEDS: PROPRANOLOL 20 MG TAB PO SCH ×3 (10:10→21:19)
[2016-08-05] MEDS: risperiDONE 2 MG TAB PO SCH ×2 (10:11→21:20)
--- NOTE | 2016-08-05 12:00 | P.PN ---
Progress Note - Text Interval history: The patient is found in his room he follows me to an interview room. He reports his mood is "fine". He has somewhat disengage from some of the groups and been isolating in his room. He is going down for meals. He states he needs a break from the group activity. Staff report no agitated behavior he has been cooperative with direction. He has no questions or concerns regarding medication. Mental status exam: The patient is seated calmly in the chair eye contact is intermittent. He has no spontaneous speech but does provide brief answers to questions asked. He has a disheveled appearance. He is endorsing no suicidal or homicidal ideation intent or plan. He reports no auditory or visual hallucinations. He endorses no specific delusions. He is fully oriented to person place and date. Insight and judgment are chronically limited. He demonstrates no abnormal involuntary movements. Plan: The patient will continue on his current medications. He continues to demonstrate nonaggressive behavior now for numerous days. We are waiting [facility] placement. Vital signs reviewed.
[2016-08-05] MEDS: MIRTAZAPINE 15 MG TAB PO SCH (21:20)
[2016-08-05] MEDS: MONTELUKAST 10 MG TAB PO SCH (21:20)
[2016-08-06] MEDS: FAMOTIDINE 20 MG TAB PO SCH ×2 (08:38→20:37)
[2016-08-06] MEDS: lamoTRIgine 100 MG TAB PO SCH (08:38)
[2016-08-06] MEDS: risperiDONE 2 MG TAB PO SCH ×2 (08:38→20:38)
[2016-08-06] MEDS: LORATADINE 10 MG TAB PO SCH (08:38)
[2016-08-06] MEDS: PROPRANOLOL 20 MG TAB PO SCH ×3 (08:39→20:37)
--- NOTE | 2016-08-06 13:37 | P.PN ---
Progress Note - Text Interval history: The patient is found in the hallway he follows me to an interview room. He reports he had a pleasant visit with his father last evening. The patient states he sleeping at night appetite stable. He has not been going to groups as he feels "I've heard it all" he has no questions or concerns regarding his medications. Staff report no agitated behavior from the patient. Mental status exam: The patient is alert he seated calmly he is dressed in his own clothing. He has a disheveled appearance hygiene has been adequate he is going to shower next. He reports his mood is "fine". Affect is a little brighter he engages more and spontaneous conversation and tries to utilize humor. He demonstrates no verbal or physical aggressiveness. Insight and judgment are chronically impaired. He reports no auditory or visual hallucinations no specific delusions. He is endorsing no suicidal or homicidal ideation intent or plan. Plan: The patient will continue on his current psychotropic medications he is given encouragement to continue his appropriate behavior as he has not acted out in well over a week. We continue to look for long-term placement. Vital signs reviewed.
[2016-08-06] MEDS: LORazepam 1 MG TAB PO PRN (16:26)
[2016-08-06] MEDS: MONTELUKAST 10 MG TAB PO SCH (20:37)
[2016-08-06] MEDS: MIRTAZAPINE 15 MG TAB PO SCH (20:39)
[2016-08-07] MEDS: LORATADINE 10 MG TAB PO SCH (08:43)
[2016-08-07] MEDS: FAMOTIDINE 20 MG TAB PO SCH ×2 (08:43→21:01)
[2016-08-07] MEDS: risperiDONE 2 MG TAB PO SCH ×2 (08:43→21:01)
[2016-08-07] MEDS: PROPRANOLOL 20 MG TAB PO SCH ×3 (08:43→21:01)
[2016-08-07] MEDS: lamoTRIgine 100 MG TAB PO SCH (08:43)
--- NOTE | 2016-08-07 12:38 | P.PN ---
Progress Note - Text Interval history: The patient is found in his room. He reports his mood is stable he has no questions or concerns regarding medication. He continues to not go to groups. He does not report feeling depressed. Activity therapy was encouraged to give him some artistic tasks as he is enjoyed coloring and drawing. Vital signs reviewed. We continue to search for a senior living bed. Mental status exam: The patient is alert he is lying in bed he has a disheveled appearance hygiene is adequate. He has been showering. Speech is fluent nonspontaneous but he provides answers to questions asked. He is reporting no suicidal or homicidal ideation. He is endorsing no auditory or visual hallucinations no specific delusions. He demonstrates no verbal or physical aggressiveness. Insight and judgment chronically limited. Plan: The patient will continue on his current medications we continue to await appropriate placement. We'll monitor for safety. We are encouraging him to participate in the milieu again.
[2016-08-07] MEDS: MIRTAZAPINE 15 MG TAB PO SCH (21:01)
[2016-08-07] MEDS: MONTELUKAST 10 MG TAB PO SCH (21:01)
[2016-08-07] MEDS: LORazepam 1 MG TAB PO PRN (22:06)
[2016-08-08 06:28] VITALS: RESP 18; TEMP 98.4
[2016-08-08] MEDS: LORATADINE 10 MG TAB PO SCH (08:55)
[2016-08-08] MEDS: lamoTRIgine 100 MG TAB PO SCH (08:56)
[2016-08-08] MEDS: FAMOTIDINE 20 MG TAB PO SCH (08:56)
[2016-08-08] MEDS: risperiDONE 2 MG TAB PO SCH (08:56)
[2016-08-08] MEDS: PROPRANOLOL 20 MG TAB PO SCH ×2 (08:56→16:21)
--- NOTE | 2016-08-08 09:51 | P.DS ---
Providers Date of admission: 07/26/16 20:08 Expected date of discharge: 08/08/16 Attending physician: Harshal Rodriguez Consults: 07/26/16 20:15 Consult Physician Routine Consulting Provider: Gonzalez Feliciano Reason/Comments: Medical Management Do you want consulting provider notified?: Already Contacted Primary care physician: Nestor Garcia Kut - Discharge Diagnosis(es) (1) Depression Current Visit: Yes Status: Acute Priority: High (2) Intermittent explosive disorder Current Visit: Yes Status: Acute Priority: High (3) Cognitive impairment Current Visit: Yes Status: Acute Priority: High Hospital Course: Brief summary of admission note: This patient is a 25-year-old single male who was admitted to the mental health unit through the emergency room. He had recently been discharged and re-presented with symptoms of aggression at home. He was brought in by family as he was making violent threats towards them. The patient had also presented stating he no longer wanted to reside with his father and wanted to reside with his mother. His father who is his legal guardian set was unacceptable for the patient to reside with his mother. The patient was admitted for acute safety concerns and possibly to facilitate a change of residence. For full details please refer to the psychiatric evaluation dated 07/27/2016. Summary of hospital course: The patient was admitted to the mental health unit. We reviewed his current medications. Propranolol was titrated to 20 mg 3 times daily McD[place]las titrated we'll 100 mg daily. The patient's behavior was much more controlled during this admission. Early on there was some agitation but he has done quite well over the last 7-8 days with no aggressive behavior or speech. The patient has selectively attended groups. During this week she states he has been through all the groups and stopped attending. Appetite has been stable. He has continued to shower and participate in other activities of daily living. The decision was made that the patient would require snf placement upon discharge his father who is his legal guardian agrees. The patient is agreeable to continued community mental health services. He was seen by the hatchery laborer for routine medical consultation. Social work has spoken with family several times during the hospitalization. Mental status exam: The patient is alert he has a disheveled appearance hygiene is adequate. Eye contact is appropriate speech is fluent it is spontaneous today and nonpressured. Affect is brighter he does engage in conversation more readily. He is reporting no suicidal or homicidal ideation intent or plan he is endorsing no auditory or visual hallucinations he is endorsing no specific delusions. He demonstrates no verbal or physical aggressiveness. He does not appear hypomanic or manic. Insight and judgment are chronically impaired cognitively he is chronically impaired. No abnormal involuntary movements observed. Impressions 1. Depression unspecified, intermittent explosive disorder, chronic cognitive impairment 2. Psychosocial dysfunction due to impulsive aggressive behavior/speech Plan: The patient will be discharged mental health unit today he will be placed at [facility]. He will continue to participate in community mental health services. He will continue on Risperdal 4 mg in the morning 2 mg at bedtime, propranolol 20 mg 3 times daily, Remeron 15 mg at bedtime, Lamictal 100 mg daily , Ativan 0.5 mg 3 times daily as needed. The patient has done quite well over the last week. He is appropriate for transition back to outpatient care. Patient Condition at Discharge: Stable Plan - Discharge Summary New Discharge Prescriptions: Atomoxetine HCl [Strattera] 100 mg PO DAILY #30 capsule Famotidine [Pepcid] 20 mg PO BID #60 tab LORazepam [Ativan] 0.5 mg PO TID #45 tablet Loratadine [Claritin] 10 mg PO DAILY #30 tab Mirtazapine [Remeron] 15 mg PO HS PRN #30 tab PRN Reason: insomnia Montelukast [Singulair] 10 mg PO HS #30 tab Propranolol [Inderal] 20 mg PO TID #90 tab lamoTRIgine [LaMICtal] 100 mg PO DAILY #30 tab risperiDONE [RisperDAL] 2 mg PO HS #30 tab risperiDONE [RisperDAL] 4 mg PO DAILY #30 tablet Discharge Medication List Atomoxetine HCl [Strattera] 100 mg PO DAILY #30 capsule 08/08/16 [Rx] Famotidine [Pepcid] 20 mg PO BID #60 tab 08/08/16 [Rx] LORazepam [Ativan] 0.5 mg PO TID #45 tablet 08/08/16 [Rx] Loratadine [Claritin] 10 mg PO DAILY #30 tab 08/08/16 [Rx] Mirtazapine [Remeron] 15 mg PO HS PRN #30 tab 08/08/16 [Rx] Montelukast [Singulair] 10 mg PO HS #30 tab 08/08/16 [Rx] Propranolol [Inderal] 20 mg PO TID #90 tab 08/08/16 [Rx] lamoTRIgine [LaMICtal] 100 mg PO DAILY #30 tab 08/08/16 [Rx] risperiDONE [RisperDAL] 2 mg PO HS #30 tab 08/08/16 [Rx] risperiDONE [RisperDAL] 4 mg PO DAILY #30 tablet 08/08/16 [Rx] Follow up Appointment(s)/Referral(s): Nestor Granados MD [Primary Care Provider] - 1-2 days
[2016-08-08 16:22] VITALS: BP 126/82; PULSE 101
== END 2016-08-08 18:13 | disposition home or self-care (01) | DRG 881 ==
LOC: EC 12:00 → 3MHU 20:08
PROVIDERS: ADMIT Psychiatry & Neurology Psychiatry; ATTEND Psychiatry & Neurology Psychiatry
DX: F32.9 Major depressive disorder, single episode, unspecified (principal); F79 Unspecified intellectual disabilities; K21.9 Gastro-esophageal reflux disease without esophagitis; F59 Unspecified behavioral syndromes associated with physiological disturbances and physical factors; I10 Essential (primary) hypertension; J30.2 Other seasonal allergic rhinitis; F90.9 Attention-deficit hyperactivity disorder, unspecified type; R45.851 Suicidal ideations; F63.81 Intermittent explosive disorder; Z79.899 Other long term (current) drug therapy; Z81.8 Family history of other mental and behavioral disorders; Z88.2 Allergy status to sulfonamides; Z88.0 Allergy status to penicillin
CPT/HCPCS: 80306; 81003; 99285

== ENCOUNTER → 2016-09-07 | Outpatient (CLI) | payer MEDICARE, MEDICAID ==
[2016-09-07 09:02] LABS: Basophils % (A) 1 %; CH 29.5; CHCM 34.3; Eosinophils # (A) 0.2 k/uL (0-0.7); Eosinophils % (A) 3 %; HCT 44.7 % (39.0-53.0); HDW 2.65; HGB 15.3 gm/dL (13.0-17.5); Luc # (Auto) 0.18; Luc % (Auto) 4; Lymphocytes # (A) 1.7 k/uL (1.0-4.8); Lymphocytes % (A) 33 %; MCH 29.5 pg (25.0-35.0); MCHC 34.1 g/dL (31.0-37.0); MCV 86.4 fL (80.0-100.0); Mean Platelet Volume 10.6; Monocytes # (A) 0.5 k/uL (0-1.0); Monocytes % (A) 10 %; Neutrophils # (A) 2.5 k/uL (1.3-7.7); Neutrophils % (A) 49 %; RBC 5.17 m/uL (4.30-5.90); RDW 15.3 % (11.5-15.5); WBC 5.1 k/uL (3.8-10.6); WBC (Perox) 5.84
[2016-09-07 09:14] LABS: Bilirubin, Delta 0.4 mg/dL (0.0-0.2)
[2016-09-07 09:20] LABS: Potassium 4.8 mmol/L (3.5-5.1); Total Protein 7.8 g/dL (6.3-8.2)
[2016-09-07 13:43] LABS: Hemoglobin A1C 5.4 % (4.2-6.1)
== END | disposition home or self-care (01) ==
LOC: LABWHC1 08:41
PROVIDERS: ATTEND Psychiatry & Neurology Psychiatry
DX: T50.905A Adverse effect of unspecified drugs, medicaments and biological substances, initial encounter (principal)
CPT/HCPCS: 36415; 80051; 80076; 83036; 85025

== ENCOUNTER → 2017-02-16 | Outpatient (CLI) | payer MEDICARE, OTHER ==
[2017-02-16 08:18] LABS: Basophils % (A) 1 %; CH 29.3; CHCM 32.2; Eosinophils # (A) 0.3 k/uL (0-0.7); Eosinophils % (A) 5 %; HCT 50.3 % (39.0-53.0); HGB 15.8 gm/dL (13.0-17.5); Luc # (Auto) 0.21; Luc % (Auto) 3; Lymphocytes # (A) 1.9 k/uL (1.0-4.8); Lymphocytes % (A) 30 %; MCH 28.7 pg (25.0-35.0); MCHC 31.4 g/dL (31.0-37.0); MCV 91.5 fL (80.0-100.0); Mean Platelet Volume 10.2; Monocytes # (A) 0.6 k/uL (0-1.0); Monocytes % (A) 10 %; Neutrophils # (A) 3.3 k/uL (1.3-7.7); Neutrophils % (A) 52 %; RDW 13.6 % (11.5-15.5); WBC 6.4 k/uL (3.8-10.6); WBC (Perox) 6.24
[2017-02-16 08:21] LABS: ALT 40 U/L (21-72); AST 24 U/L (17-59); Alkaline Phosphatase 109 U/L (38-126); Anion Gap 11 mmol/L; Blood Urea Nitrogen 5 mg/dL (9-20); Calcium 9.6 mg/dL (8.4-10.2); Carbon Dioxide 28 mmol/L (22-30); Chloride 104 mmol/L (98-107); Cholesterol 121 mg/dL (<200); Glucose 82 mg/dL (74-99); HDL Cholesterol 31 mg/dL (40-60); Non-African American GFR(MDRD) >60 (>60 ml/min/1.73 sqM); Potassium 4.5 mmol/L (3.5-5.1); Sodium 143 mmol/L (137-145); Total Bilirubin 0.5 mg/dL (0.2-1.3); Total Protein 7.4 g/dL (6.3-8.2)
== END | disposition home or self-care (01) ==
LOC: LABWHC1 07:29
PROVIDERS: ATTEND Nurse Practitioner
DX: F33.2 Major depressive disorder, recurrent severe without psychotic features (principal); F90.2 Attention-deficit hyperactivity disorder, combined type; Z79.899 Other long term (current) drug therapy
CPT/HCPCS: 36415; 80053; 80061; 83036; 85025

== ENCOUNTER 2017-06-16 18:36 | Emergency (ER) | payer MEDICARE, OTHER ==
[2017-06-16 18:54] VITALS: RESP 18; TEMP 98.3
--- NOTE | 2017-06-16 19:53 | ED ---
Psych HPI - General Chief Complaint: Psychiatric Symptoms Stated Complaint: psych eval Time Seen by Provider: 06/16/17 19:33 Source: patient Mode of arrival: EMS - History of Present Illness Initial Comments: 26-year-old male patient presents to the emergency department today after self inflicting wounds to his left forearm. Patient reports that he was very upset after being in an argument with his mother. States he took a piece of glass and cut his arm. States he is trying to hurt himself however he was not trying to kill himself. He denies any current suicidal ideation. Patient reports he does have a history of depression and has attempted suicide multiple times in the past. States he has been admitted to the mental health in a multiple times as well. Patient denies any hallucinations. Denies any alcohol or drug use. States he is sleeping without difficulty. Eating and drinking like normal. Denies any current physical symptoms. Patient denies any headache, neck pain, back pain, chest pain, shortness of breath, dizziness, weakness, abdominal pain , nausea, vomiting, or difficulties with bowel movements or urination. - Related Data Home Medications Medication Instructions Recorded Confirmed Mirtazapine [Remeron] 15 mg PO HS 06/16/17 06/16/17 Ranitidine HCl 150 mg PO BID 06/16/17 06/16/17 Previous Rx's Medication Instructions Recorded Atomoxetine HCl [Strattera] 100 mg PO DAILY #30 capsule 08/08/16 LORazepam [Ativan] 0.5 mg PO TID #45 tablet 08/08/16 Loratadine [Claritin] 10 mg PO DAILY #30 tab 08/08/16 Montelukast [Singulair] 10 mg PO HS #30 tab 08/08/16 Propranolol [Inderal] 20 mg PO TID #90 tab 08/08/16 lamoTRIgine [LaMICtal] 100 mg PO DAILY #30 tab 08/08/16 risperiDONE [RisperDAL] 4 mg PO DAILY #30 tablet 08/08/16 Allergies Allergy/AdvReac Type Severity Reaction Status Date / Time Penicillins Allergy Rash/Hives Verified 06/16/17 19:07 Sulfa (Sulfonamide Allergy Rash/Hives Verified 06/16/17 19:07 Antibiotics) Review of Systems ROS Statement: Those systems with pertinent positive or pertinent negative responses have been documented in the HPI. ROS Other: All systems not noted in ROS Statement are negative. Past Medical History Past Medical History: GERD/Reflux History of Any Multi-Drug Resistant Organisms: None Reported Additional Past Surgical History / Comment(s): Esophigial surgery Past Psychological History: ADD/ADHD, Bipolar, Depression Smoking Status: Never smoker Past Alcohol Use History: None Reported Past Drug Use History: None Reported - Past Family History Father Family Medical History: Pulmonary Embolus Additional Family Medical History / Comment(s): Father is alive at age 60 with no major medical problems. Mother Additional Family Medical History / Comment(s): Patient does not know his mother but no she has an alcohol abuse problem and that she is alive. Brother(s) Additional Family Medical History / Comment(s): Patient has 1 brother that of SIDS. He also has 3 siblings which she does not know their medical history. General Exam Limitations: no limitations General appearance: alert, in no apparent distress, other (This is a well- developed, well-nourished adult male patient in no acute distress. Vital signs upon presentation are temperature 98.3F, pulse 97, respirations 18, blood pressure 149/96, pulse ox 98% on room air.) Eye exam: Present: normal appearance, PERRL, EOMI. Absent: scleral icterus, conjunctival injection, periorbital swelling ENT exam: Present: normal exam, normal oropharynx, mucous membranes moist Respiratory exam: Present: normal lung sounds bilaterally. Absent: respiratory distress, wheezes, rales, rhonchi, stridor Cardiovascular Exam: Present: regular rate, normal rhythm, normal heart sounds. Absent: systolic murmur, diastolic murmur, rubs, gallop, clicks Extremities exam: Present: full ROM, normal capillary refill, other (Patient has 32 cm superficial lacerations to the volar aspect of the left forearm. Bleeding is controlled. Skin is otherwise pink, warm, and dry. Cap refills less than 3 seconds. Radial pulses 2+ and equal bilaterally.). Absent: normal inspection, tenderness, pedal edema, joint swelling, calf tenderness Back exam: Present: normal inspection Neurological exam: Present: alert, oriented X3, CN II-XII intact Psychiatric exam: Present: normal affect, normal mood Skin exam: Present: warm, dry, intact, normal color. Absent: rash Course Vital Signs 06/16/17 18:49 Temperature 98.3 F Pulse Rate 97 Respiratory 18 Rate Blood Pressure 149/96 O2 Sat by Pulse 98 Oximetry Medical Decision Making - Medical Decision Making 18-year-old male patient presented to the emergency department today for evaluation of left arm wound self-inflicted after becoming angry. Patient denies suicidal or homicidal ideation. He was evaluated by emergency psychiatric services who really does not meet inpatient criteria at this time. They did speak with his correction who are willing to accept him back and feel comfortable caring for him. I did discuss the plan with the patient. She does contract for safety. He agrees to follow-up with his counselor early this week. He is instructed to follow up with his primary care physician for recheck. He was educated regarding wound care. Last tetanus was given 6 months ago. He is instructed to return here immediately for any new, worsening , or concerning symptoms. He verbalizes understanding and agrees with this plan. Disposition Clinical Impression: Self-harming behavior Disposition: HOME SELF-CARE Condition: Good Instructions: Laceration (ED) Additional Instructions: Clean wounds twice daily with warm water and antibacterial soap. Follow-up with your counselor or therapist for further evaluation. Return here immediately for any new, worsening, or concerning symptoms. Referrals: Nestor Granados MD [Primary Care Provider] - 1-2 days Time of Disposition: 20:58
[2017-06-16 21:33] VITALS: BP 122/80; PULSE 107
== END 2017-06-16 21:33 | disposition home or self-care (01) ==
LOC: EEVIPCON 18:36 → EC 18:36
DX: S51.812A Laceration without foreign body of left forearm, initial encounter (principal); R45.4 Irritability and anger; K21.9 Gastro-esophageal reflux disease without esophagitis; F90.9 Attention-deficit hyperactivity disorder, unspecified type; F31.9 Bipolar disorder, unspecified; Z79.899 Other long term (current) drug therapy; Z88.0 Allergy status to penicillin; Z88.2 Allergy status to sulfonamides; X78.0XXA Intentional self-harm by sharp glass, initial encounter
CPT/HCPCS: 82075; 99284

== ENCOUNTER → 2017-07-11 | Outpatient (CLI) | payer MEDICARE, OTHER ==
[2017-07-11 08:45] LABS: Basophils % (A) 1 %; Eosinophils # (A) 0.3 k/uL (0-0.7); Eosinophils % (A) 4 %; HGB 17.2 gm/dL (13.0-17.5); Lymphocytes # (A) 2.4 k/uL (1.0-4.8); Lymphocytes % (A) 33 %; MCHC 33.1 g/dL (31.0-37.0); MCV 84.4 fL (80.0-100.0); Mean Platelet Volume 10.8; Monocytes # (A) 0.5 k/uL (0-1.0); Monocytes % (A) 7 %; Neutrophils # (A) 3.9 k/uL (1.3-7.7); Neutrophils % (A) 54 %; RBC 6.15 m/uL (4.30-5.90); RDW 14.1 % (11.5-15.5); WBC 7.2 k/uL (3.8-10.6)
[2017-07-11 08:59] LABS: ALT 31 U/L (21-72); AST 31 U/L (17-59); Albumin 4.8 g/dL (3.5-5.0); Alkaline Phosphatase 136 U/L (38-126); Anion Gap 15 mmol/L; Blood Urea Nitrogen 10 mg/dL (9-20); Carbon Dioxide 29 mmol/L (22-30); Chloride 100 mmol/L (98-107); Cholesterol 150 mg/dL (<200); Glucose 90 mg/dL (74-99); HDL Cholesterol 36 mg/dL (40-60); LDL Cholesterol,Calculated 94 mg/dL (0-99); Potassium 4.8 mmol/L (3.5-5.1); Sodium 144 mmol/L (137-145); Total Bilirubin 0.7 mg/dL (0.2-1.3); Total Protein 8.1 g/dL (6.3-8.2); Triglycerides 98 mg/dL (<150)
[2017-07-11 11:04] LABS: Macrocytosis /p
== END | disposition home or self-care (01) ==
LOC: LABWHC1 08:18
PROVIDERS: ATTEND Family Medicine
DX: Z00.00 Encounter for general adult medical examination without abnormal findings (principal); E55.9 Vitamin D deficiency, unspecified
CPT/HCPCS: 36415; 80053; 80061; 82306; 84443; 85025

== ENCOUNTER 2017-12-25 11:26 | Emergency (ER) | payer MEDICARE, OTHER ==
[2017-12-25 12:31] LABS: ALT 29 U/L (21-72); AST 33 U/L (17-59); Alkaline Phosphatase 120 U/L (38-126); Amylase 78 U/L (30-110); Anion Gap 12 mmol/L; Blood Urea Nitrogen 6 mg/dL (9-20); Calcium 9.8 mg/dL (8.4-10.2); Carbon Dioxide 31 mmol/L (22-30); Chloride 100 mmol/L (98-107); Glucose 92 mg/dL (74-99); Lipase 138 U/L (23-300); Potassium 4.6 mmol/L (3.5-5.1); Sodium 143 mmol/L (137-145); Total Bilirubin 0.6 mg/dL (0.2-1.3); Total Protein 8.1 g/dL (6.3-8.2)
[2017-12-25] MEDS ORDERED: KETOROLAC 30 MG/ML 1 ML VIAL IVP STA (12:34)
[2017-12-25] MEDS ORDERED: SODIUM CHLORIDE 0.9% 1,000 ML IV ONE (12:34)
--- NOTE | 2017-12-25 12:36 | ED ---
Abdominal Pain HPI - General Chief Complaint: Abdominal Pain Stated Complaint: abdominal pain Hx enlarged spleen Time Seen by Provider: 12/25/17 11:44 Source: patient, RN notes reviewed, old records reviewed Mode of arrival: ambulatory Limitations: no limitations - History of Present Illness Initial Comments: 27-year-old male presents emergency department today with history of sudden pain on the left upper quadrant. He reports his splenomegaly. Concerned that this plan was the cause of pain. Patient has had no fevers or chills. He has had no other symptoms. The pain is diminished upon arrival. No nausea vomiting or any other symptoms associated with the pain. - Related Data Home Medications Medication Instructions Recorded Confirmed Ranitidine HCl 150 mg PO BID@,06/16/17 12/25/17 Atomoxetine HCl [Strattera] 100 mg PO DAILY@79912/25/17 12/25/17 LORazepam [Ativan] 0.5 mg PO TID@,,12/25/17 12/25/17 Loratadine [Claritin] 10 mg PO DAILY@79912/25/17 12/25/17 Montelukast [Singulair] 10 mg PO HS@209912/25/17 12/25/17 Propranolol [Inderal] 20 mg PO TID@,,12/25/17 12/25/17 lamoTRIgine [LaMICtal] 200 mg PO DAILY@79912/25/17 12/25/17 risperiDONE [RisperDAL] 4 mg PO HS@209912/25/17 12/25/17 Allergies Allergy/AdvReac Type Severity Reaction Status Date / Time Penicillins Allergy Rash/Hives Verified 12/25/17 14:19 Sulfa (Sulfonamide Allergy Rash/Hives Verified 12/25/17 14:19 Antibiotics) Review of Systems ROS Statement: Those systems with pertinent positive or pertinent negative responses have been documented in the HPI. ROS Other: All systems not noted in ROS Statement are negative. Past Medical History Past Medical History: GERD/Reflux History of Any Multi-Drug Resistant Organisms: None Reported Additional Past Surgical History / Comment(s): Esophigial surgery Past Psychological History: ADD/ADHD, Bipolar, Depression Smoking Status: Current some day smoker Past Alcohol Use History: None Reported Past Drug Use History: None Reported - Past Family History Father Family Medical History: Pulmonary Embolus Additional Family Medical History / Comment(s): Father is alive at age 60 with no major medical problems. Mother Additional Family Medical History / Comment(s): Patient does not know his mother but no she has an alcohol abuse problem and that she is alive. Brother(s) Additional Family Medical History / Comment(s): Patient has 1 brother that of SIDS. He also has 3 siblings which she does not know their medical history. General Exam - General Exam Comments Initial Comments: 27-year-old male. Limitations: no limitations General appearance: alert, in no apparent distress Head exam: Present: atraumatic, normocephalic, normal inspection Eye exam: Present: normal appearance, PERRL, EOMI. Absent: scleral icterus, conjunctival injection, periorbital swelling ENT exam: Present: normal exam, mucous membranes moist Neck exam: Present: normal inspection. Absent: tenderness, meningismus, lymphadenopathy Respiratory exam: Present: normal lung sounds bilaterally. Absent: respiratory distress, wheezes, rales, rhonchi, stridor Cardiovascular Exam: Present: regular rate, normal rhythm, normal heart sounds. Absent: systolic murmur, diastolic murmur, rubs, gallop, clicks GI/Abdominal exam: Present: soft, normal bowel sounds. Absent: distended, tenderness, guarding, rebound, rigid Extremities exam: Present: normal inspection, full ROM, normal capillary refill. Absent: tenderness, pedal edema, joint swelling, calf tenderness Back exam: Present: normal inspection Course Vital Signs 12/25/17 12/25/17 12/25/17 11:39 13:31 14:39 Temperature 97.6 F 98.5 F Pulse Rate 79 66 80 Respiratory 18 19 18 Rate Blood Pressure 164/91 131/81 122/81 O2 Sat by Pulse 98 100 100 Oximetry 12/25/17 15:55 Temperature 98.8 F Pulse Rate 78 Respiratory 19 Rate Blood Pressure 123/77 O2 Sat by Pulse 99 Oximetry Medical Decision Making - Medical Decision Making 27-year-old male. Alert and oriented. No acute distress presents emergency department today with onset of sharp left-sided abdominal pain. Does have a stress visual megaly. This is likely caused by some medications. He has seen a surgeon for question will slowly removed. No trauma or any history of trauma to cause abdominal pain. Medicine patient's labwork was reviewed and unremarkable. ABG shows markedly megaly. Perform an ultrasound which shows evidence of any evidence of free fluid. Cyst to further characterize MRI and computed tomography scan. Patient had a computed tomography scan 3 weeks ago. Review this chart [facility]. There is no significant change from the CT scan at this time. Patient advised that close follow-up with primary care physician and general surgeon. Patient understands treatment plan will comply. Return parameters were discussed. - Lab Data Result diagrams: 12/25/17 12:11 12/25/17 12:11 Lab Results 12/25/17 12/25/17 12/25/17 Range/Units 12:11 12:11 14:00 WBC 5.6 (3.8-10.6) k/uL RBC 5.51 (4.30-5.90) m/uL Hgb 15.0 (13.0-17.5) gm/dL Hct 47.0 (39.0-53.0) % MCV 85.4 (80.0-100.0) fL MCH 27.3 (25.0-35.0) pg MCHC 31.9 (31.0-37.0) g/dL RDW 14.5 (11.5-15.5) % Plt Count 84 L (150-450) k/uL Neutrophils % 65 % Lymphocytes % 24 % Monocytes % 7 % Eosinophils % 1 % Basophils % 1 % Neutrophils # 3.7 (1.3-7.7) k/uL Lymphocytes # 1.3 (1.0-4.8) k/uL Monocytes # 0.4 (0-1.0) k/uL Eosinophils # 0.1 (0-0.7) k/uL Basophils # 0.0 (0-0.2) k/uL Manual Slide Review Performed Large Platelets Present RBC Morphology Normal Sodium 143 (137-145) mmol/L Potassium 4.6 (3.5-5.1) mmol/L Chloride 100 (98-107) mmol/L Carbon Dioxide 31 H (22-30) mmol/L Anion Gap 12 mmol/L BUN 6 L (9-20) mg/dL Creatinine 0.80 (0.66-1.25) mg/dL Est GFR (CKD-EPI)AfAm >90 (>60 ml/min/1.73 sqM) Est GFR (CKD-EPI)NonAf >90 (>60 ml/min/1.73 sqM) Glucose 92 (74-99) mg/dL Calcium 9.8 (8.4-10.2) mg/dL Total Bilirubin 0.6 (0.2-1.3) mg/dL AST 33 (17-59) U/L ALT 29 (21-72) U/L Alkaline Phosphatase 120 (38-126) U/L Total Protein 8.1 (6.3-8.2) g/dL Albumin 5.0 (3.5-5.0) g/dL Amylase 78 (30-110) U/L Lipase 138 (23-300) U/L Urine Color Light Yellow Urine Appearance Clear (Clear) Urine pH 7.0 (5.0-8.0) Ur Specific [place] 1.004 (1.001-1.035) Urine Protein Negative (Negative) Urine Glucose (UA) Negative (Negative) Urine Ketones Negative (Negative) Urine Blood Negative (Negative) Urine Nitrite Negative (Negative) Urine Bilirubin Negative (Negative) Urine Urobilinogen <2.0 (<2.0) mg/dL Ur Leukocyte Esterase Negative (Negative) - Radiology Data Radiology results: report reviewed Large splenic shadow spleen possibly measuring 20 cm. Moderate stool in the right side of the colon. No evidence of bowel instruction or free and tripped nail. Disposition Clinical Impression: Splenomegaly, Abdominal pain Disposition: HOME SELF-CARE Condition: Good Instructions: Abdominal Pain (ED) Additional Instructions: Patient advised follow-up with primary care provider. Patient should not have any direct trauma to the spleen. you are at higher risk for splenic rupture. He should follow-up with a surgeon. Return to the emergency department if any alarming signs or symptoms occur. Is patient prescribed a controlled substance at d/c from ED?: No Referrals: Nestor Granados MD [Primary Care Provider] - 1-2 days Time of Disposition: 16:07
[2017-12-25 12:46] LABS: Basophils % (A) 1 %; Eosinophils # (A) 0.1 k/uL (0-0.7); Eosinophils % (A) 1 %; Lymphocytes # (A) 1.3 k/uL (1.0-4.8); Lymphocytes % (A) 24 %; MCH 27.3 pg (25.0-35.0); MCHC 31.9 g/dL (31.0-37.0); MCV 85.4 fL (80.0-100.0); Mean Platelet Volume 10.6; Monocytes # (A) 0.4 k/uL (0-1.0); Monocytes % (A) 7 %; Neutrophils # (A) 3.7 k/uL (1.3-7.7); Neutrophils % (A) 65 %; RBC 5.51 m/uL (4.30-5.90); RDW 14.5 % (11.5-15.5); WBC 5.6 k/uL (3.8-10.6)
[2017-12-25 13:02] LABS: Large Platelets Present; Platelet Count 84 k/uL (150-450)
--- NOTE | 2017-12-25 13:22 | XR ---
EXAMINATION TYPE: XR KUB DATE OF EXAM: 12/25/2017 CLINICAL DATA: 27-year-old male sharp abdominal pain, PH[facility] COMPARISON: None FINDINGS: Lung bases are clear. No evidence for free intraperitoneal air. No dilated small bowel or air-fluid levels. Scattered air and stool seen throughout the colon extendi ng distally into the rectum. Moderate stool in the right side of the colon. No suspicious calcifications identified. Splenic shadow appears very large possibly measuring up to 20 cm. IMPRESSION: 1. Large splenic shadow, spleen possibly measuring up to 20 cm. 2. Moderate stool in the right side of the colon. 3.No evidence of bowel obstruction or free intraperitoneal air.
[2017-12-25 14:17] LABS: Appearance,Urine Clear (Clear); Bilirubin,Urine Negative (Negative); Blood,Urine Negative (Negative); Color,Urine Light Yellow; Glucose,Urine (UA) Negative (Negative); Ketones,Urine Negative (Negative); Leukocyte Esterase,Urine Negative (Negative); Nitrite,Urine Negative (Negative); Protein,Urine Negative (Negative); Specific Gravity,Urine 1.004 (1.001-1.035); Urobilinogen,Urine <2.0 mg/dL (<2.0)
--- NOTE | 2017-12-25 15:58 | US ---
EXAMINATION TYPE: US abdomen limited DATE OF EXAM: 12/25/2017 COMPARISON: NONE CLINICAL HISTORY: 27-year-old male Pain. LUQ pain, patient states imaging at [facility] showed enlarged spleen TECHNIQUE: Multiple sonographic images of the left upper quadrant are obtained. FINDINGS: EXAM MEASUREMENTS: Spleen: 22.1cm Left Kidney: 9.9 x 5.2 x 6.1cm 1. Spleen: large mass seen with low level echoes echoes = 18.8 x 16.8 x 16.5cm 2. Left Kidney: No hydronephrosis. IMPRESSION: 1. Marked splenomegaly at 22.1 cm. 2. Within the spleen, there is a large round homogeneous hypoechoic lesion measuring 19 cm. The exact etiology is uncertain. Possible complicated cyst or pseudocyst. A hematoma would be expected to be m ore heterogeneous. CT without and with contrast or multiphasic MRI may be useful to further assess.
[2017-12-25 16:35] VITALS: BP 123/82; PULSE 72; RESP 20; TEMP 98.4
== END 2017-12-25 16:35 | disposition home or self-care (01) ==
LOC: EC 11:26
DX: R10.12 Left upper quadrant pain (principal); R16.1 Splenomegaly, not elsewhere classified; F31.9 Bipolar disorder, unspecified; K21.9 Gastro-esophageal reflux disease without esophagitis; F17.200 Nicotine dependence, unspecified, uncomplicated; Z79.899 Other long term (current) drug therapy; Z88.0 Allergy status to penicillin; Z88.2 Allergy status to sulfonamides
CPT/HCPCS: 36415; 80053; 82150; 83690; 85025; 81003; 74018; 76705; 99285; 96374; 96361; J1885

== ENCOUNTER 2019-01-12 19:17 | Emergency (ER) | payer MEDICARE, OTHER ==
[2019-01-12 19:22] VITALS: BP 130/83; PULSE 91; RESP 18; TEMP 98.2
--- NOTE | 2019-01-12 19:26 | ED ---
Extremity Problem HPI - General Source: patient Mode of arrival: ambulatory Limitations: no limitations <Valeria Goddard - Last Filed: 01/12/19 20:23> <Fauzia Amaro - Last Filed: 01/15/19 00:02> - General Chief complaint: Extremity Problem,Nontraumatic Stated complaint: Foot pain Time Seen by Provider: 01/12/19 19:24 - History of Present Illness Initial comments: 1-year-old male no CVA. Past medical history presenting for evaluation of blister on the bottom of left foot. Patient states thatof his great toe on his left foot has a small blister he states that he is concerned it may get infected. Patient states the blister skin ripped off. Patient states it is because he got new shoes. Patient denies any fevers like symptoms. Patient denies any other complaints. Remaining review system negative. Patient does not have history diabetes. She states he noticed a lesion today. (Valeria Goddard) - Related Data Home Medications Medication Instructions Recorded Confirmed Ranitidine HCl 150 mg PO BID@06/16/17 12/25/17 Atomoxetine HCl [Strattera] 100 mg PO DAILY@79912/25/17 12/25/17 LORazepam [Ativan] 0.5 mg PO TID@12/25/17 12/25/17 Loratadine [Claritin] 10 mg PO DAILY@79912/25/17 12/25/17 Montelukast [Singulair] 10 mg PO HS@209912/25/17 12/25/17 Propranolol [Inderal] 20 mg PO TID@12/25/17 12/25/17 lamoTRIgine [LaMICtal] 200 mg PO DAILY@79912/25/17 12/25/17 risperiDONE [RisperDAL] 4 mg PO HS@209912/25/17 12/25/17 Allergies Allergy/AdvReac Type Severity Reaction Status Date / Time Penicillins Allergy Rash/Hives Verified 12/25/17 14:19 Sulfa (Sulfonamide Allergy Rash/Hives Verified 12/25/17 14:19 Antibiotics) Review of Systems ROS Other: All systems not noted in ROS Statement are negative. <Valeria Goddard - Last Filed: 01/12/19 20:23> ROS Other: All systems not noted in ROS Statement are negative. <Fauzia Amaro - Last Filed: 01/15/19 00:02> ROS Statement: Those systems with pertinent positive or pertinent negative responses have been documented in the HPI. Past Medical History Past Medical History: GERD/Reflux History of Any Multi-Drug Resistant Organisms: None Reported Additional Past Surgical History / Comment(s): Esophigial surgery Past Psychological History: ADD/ADHD, Bipolar, Depression Smoking Status: Current some day smoker Past Alcohol Use History: None Reported Past Drug Use History: None Reported - Past Family History Father Family Medical History: Pulmonary Embolus Additional Family Medical History / Comment(s): Father is alive at age 60 with no major medical problems. Mother Additional Family Medical History / Comment(s): Patient does not know his mother but no she has an alcohol abuse problem and that she is alive. Brother(s) Additional Family Medical History / Comment(s): Patient has 1 brother that of SIDS. He also has 3 siblings which she does not know their medical history. <Valeria Goddard - Last Filed: 01/12/19 20:23> General Exam Limitations: no limitations <Valeria Goddard - Last Filed: 01/12/19 20:23> - General Exam Comments Initial Comments: General: The patient is awake and alert, in no distress, and does not appear acutely ill. Eye: Pupils are equal, round and reactive to light, extra-ocular movements are intact. No nystagmus. There is normal conjunctiva bilaterally. No signs of icterus. Musculoskeletal: Normal ROM, no tenderness. Strength 5/5. Sensation intact. DP pulses equal bilaterally 2+. Neurological: A&O x 3. CN II-XII intact grossly, There are no obvious motor or sensory deficits. Coordination appears grossly intact. Speech is normal. Skin: Skin is warm and dry and no rashes. 1x.5cm skin avulsion of the skin, superifical -- no surrounding erythema or fluctuance Psychiatric: Cooperative, appropriate mood & affect, normal judgment. (Valeria Goddard) Course Vital Signs 01/12/19 19:20 Temperature 98.2 F Pulse Rate 91 Respiratory 18 Rate Blood Pressure 130/83 O2 Sat by Pulse 98 Oximetry Medical Decision Making <Valeria Goddard - Last Filed: 01/12/19 20:23> <Fauzia Amaro - Last Filed: 01/15/19 00:02> - Medical Decision Making Male presents emergency department for evaluation of blister. Superficial blister examination he states he has new shoes appear to be friction blister. Nose running cellulitis. Patient is not diabetic. Patient had bacitracin rachel lied to the area as well as a bandage. Discussed changing shoes return parameters discussed case discussed with attending provider patient discharged appearing well (Valeria Goddard) I was available for consultation in the emergency department. The history and physical exam were done by the midlevel provider. I was consulted for this patients care. I reviewed the case with the midlevel provider and based on their presentation of the patient, I agree with the assessment, medical decision making and plan of care as documented. Chart was dictated using [employer] dictation software. Attempts were made to correct any dictation errors however some typographical errors may persist. (Fauzia Amaro) Disposition Is patient prescribed a controlled substance at d/c from ED?: No Time of Disposition: 19:26 <Valeria Goddard - Last Filed: 01/12/19 20:23> <Fauzia Amaro - Last Filed: 01/15/19 00:02> Clinical Impression: Friction blister Disposition: HOME SELF-CARE Condition: Good Instructions (If sedation given, give patient instructions): Blister (ED) Additional Instructions: Please use medication as discussed. Please follow-up with family doctor in the next 2 days.. Please return to emergency room if the symptoms increase or worsen or for any other concerns. Referrals: Nestor Granados MD [Primary Care Provider] - 1-2 days
== END 2019-01-12 19:31 | disposition home or self-care (01) ==
LOC: EC 19:17
DX: S90.422A Blister (nonthermal), left great toe, initial encounter (principal); K21.9 Gastro-esophageal reflux disease without esophagitis; F31.9 Bipolar disorder, unspecified; F90.9 Attention-deficit hyperactivity disorder, unspecified type; F17.200 Nicotine dependence, unspecified, uncomplicated; Z88.0 Allergy status to penicillin; Z88.2 Allergy status to sulfonamides; Z79.899 Other long term (current) drug therapy; X58.XXXA Exposure to other specified factors, initial encounter
CPT/HCPCS: 99283

== ENCOUNTER 2022-10-05 20:59 | Emergency (ER) | payer MEDICARE, OTHER ==
[2022-10-05 21:22] VITALS: BP 133/78; PULSE 72; RESP 18; TEMP 98.2
--- NOTE | 2022-10-06 00:07 | ED ---
General Adult HPI - General Chief complaint: Altered Mental Status Stated complaint: Allergic Reaction Time Seen by Provider: 10/05/22 21:07 Source: patient, RN notes reviewed Mode of arrival: EMS Limitations: language barrier - History of Present Illness Initial comments: 32-year-old male presents emergency department chief complaint of "allergic reaction." Patient states that he took a 60mg CBD edible which he has not done before. He states that he typically does not use marijuana products. He reports feeling "high." He denies chest pain, shortness of breath, rash. Denies fever, chills. Denies any falls. Reports allergies to PCN and sulfa. He takes no daily medications. - Related Data Home Medications Medication Instructions Recorded Confirmed raNITIdine HCL [Zantac] 150 mg PO BID@06/16/17 12/25/17 Atomoxetine HCl [Strattera] 100 mg PO DAILY@79912/25/17 12/25/17 LORazepam [Ativan] 0.5 mg PO TID@12/25/17 12/25/17 Loratadine [Claritin] 10 mg PO DAILY@79912/25/17 12/25/17 Montelukast [Singulair] 10 mg PO HS@209912/25/17 12/25/17 Propranolol [Inderal] 20 mg PO TID@,,12/25/17 12/25/17 lamoTRIgine [LaMICtal] 200 mg PO DAILY@79912/25/17 12/25/17 risperiDONE [RisperDAL] 4 mg PO HS@209912/25/17 12/25/17 Allergies Allergy/AdvReac Type Severity Reaction Status Date / Time Penicillins Allergy Rash/Hives Verified 12/25/17 14:19 Sulfa (Sulfonamide Allergy Rash/Hives Verified 12/25/17 14:19 Antibiotics) Review of Systems ROS Statement: Those systems with pertinent positive or pertinent negative responses have been documented in the HPI. ROS Other: All systems not noted in ROS Statement are negative. Past Medical History Past Medical History: GERD/Reflux History of Any Multi-Drug Resistant Organisms: None Reported Additional Past Surgical History / Comment(s): Esophigial surgery Past Psychological History: ADD/ADHD, Bipolar, Depression Smoking Status: Current some day smoker Past Alcohol Use History: None Reported Past Drug Use History: None Reported - Past Family History Father Family Medical History: Pulmonary Embolus Additional Family Medical History / Comment(s): Father is alive at age 60 with no major medical problems. Mother Additional Family Medical History / Comment(s): Patient does not know his mother but no she has an alcohol abuse problem and that she is alive. Brother(s) Additional Family Medical History / Comment(s): Patient has 1 brother that of SIDS. He also has 3 siblings which she does not know their medical history. General Exam Limitations: language barrier General appearance: alert, in no apparent distress Head exam: Present: atraumatic, normocephalic, normal inspection Eye exam: Present: normal appearance, PERRL, EOMI. Absent: scleral icterus, c onjunctival injection, periorbital swelling ENT exam: Present: normal exam, mucous membranes moist Neck exam: Present: normal inspection, full ROM. Absent: tenderness, meningismus, lymphadenopathy Respiratory exam: Present: normal lung sounds bilaterally. Absent: respiratory distress, wheezes, rales, rhonchi, stridor Cardiovascular Exam: Present: regular rate, normal rhythm, normal heart sounds. Absent: systolic murmur, diastolic murmur, rubs, gallop, clicks GI/Abdominal exam: Present: soft, normal bowel sounds. Absent: distended, tenderness, guarding, rebound, rigid Extremities exam: Present: normal inspection, full ROM, normal capillary refill. Absent: tenderness, pedal edema, joint swelling, calf tenderness Back exam: Present: normal inspection Neurological exam: Present: alert, oriented X3, CN II-XII intact, normal gait Psychiatric exam: Present: normal affect, normal mood Skin exam: Present: warm, dry, intact, normal color. Absent: rash Course Vital Signs 10/05/22 21:20 Temperature 98.2 F Pulse Rate 72 Respiratory 18 Rate Blood Pressure 133/78 O2 Sat by Pulse 100 Oximetry Medical Decision Making - Medical Decision Making Was pt. sent in by a medical professional or institution (, PA, TURRET LATHE MACHINIST, urgent care, hospital, or prison...) When possible be specific @ -No Did you speak to anyone other than the patient for history (EMS, parent, family, police, friend...)? What history was obtained from this source @ -No Did you review nursing and triage notes (agree or disagree)? Why? @ -I reviewed and agree with nursing and triage notes Were old charts reviewed (outside hosp., previous admission, EMS record, old EKG, old radiological studies, urgent care reports/EKG's, prison records)? Report findings @ -No old charts were reviewed Differential Diagnosis (chest pain, altered mental status, abdominal pain women, abdominal pain men, vaginal bleeding, weakness, fever, dyspnea, syncope, headache, dizziness, GI bleed, back pain, seizure, CVA, palpatations, mental health, musculoskeletal)? @ -not applicable EKG interpreted by me (3pts min.). @ -none X-rays interpreted by me (1pt min.). @ -None done CT interpreted by me (1pt min.). @ -None done U/S interpreted by me (1pt. min.). @ -None done What testing was considered but not performed or refused? (CT, X-rays, U/S, labs)? Why? @ -None What meds were considered but not given or refused? Why? @ -None Did you discuss the management of the patient with other professionals (professionals i.e. , PA, TURRET LATHE MACHINIST, lab, RT, psych nurse, hospital social worker, batch plant supervisor, teacher, loan servicing officer, case management coordinator)? Give summary @ -No Was smoking cessation discussed for >3mins.? @ -No Was critical care preformed (if so, how long)? @ -No Were there social determinants of health that impacted care today? How? (Homelessness, low income, unemployed, alcoholism, drug addiction, transportation, low edu. Level, literacy, decrease access to med. care, senior living, rehab)? @ -No Was there de-escalation of care discussed even if they declined (Discuss DNR or withdrawal of care, Hospice)? DNR status @ -No What co-morbidities impacted this encounter? (DM, HTN, Smoking, COPD, CAD, Cancer, CVA, ARF, Chemo, Hep., AIDS, mental health diagnosis, sleep apnea, morbid obesity)? @ -None Was patient admitted / discharged? Hospital course, mention meds given and route, prescriptions, significant lab abnormalities, going to OR and other pertinent info. @ -discharged. Patient presented to the emergency department for chief complaint of "allergic reaction." He states that he took a 60mg CBD edible. Patient states that he thought he is having an ALLERGIC reaction because he was feeling funny after taking the edible. He denied shortness of breath, chest pain, rash. Patient's vital signs stable in the ED, patient is interactive and following commands, neuro exam intact. Discussed with the patient that this is likely the effects of the CBC and is not an ALLERGIC reaction. Patient is able to tolerate oral hydration. Patient states that he was at home with his fianc and feels that he would be safe to go home. Patient stable at time of discharge. Case discussed with my attending, Dr. Delgado Undiagnosed new problem with uncertain prognosis? @ -No Drug Therapy requiring intensive monitoring for toxicity (Heparin, Nitro, Insulin, Cardizem)? @ -No Were any procedures done? @ -No Diagnosis/symptom? @ -CBD intoxication Acute, or Chronic, or Acute on Chronic? @ -Acute Uncomplicated (without systemic symptoms) or Complicated (systemic symptoms)? @ -Uncomplicated Side effects of treatment? @ -No Exacerbation, Progression, or Severe Exacerbation? @ -No Poses a threat to life or bodily function? How? (Chest pain, [place], [place], pneumonia, PE, COPD, DKA, ARF, appy, cholecystitis, CVA, Diverticulitis, Homicidal, Suicidal, threat to staff... and all critical care pts) @ -No Disposition Clinical Impression: Cannabis intoxication Disposition: HOME SELF-CARE Condition: Stable Additional Instructions: Please return to the emergency department for new or worsening symptoms. Is patient prescribed a controlled substance at d/c from ED?: No Referrals: Nestor Granados MD [Primary Care Provider] - 1-2 days Time of Disposition: 00:22
== END 2022-10-06 01:07 | disposition home or self-care (01) ==
LOC: EC 20:59
DX: F12.929 Cannabis use, unspecified with intoxication, unspecified (principal); K21.9 Gastro-esophageal reflux disease without esophagitis; F31.9 Bipolar disorder, unspecified; F17.200 Nicotine dependence, unspecified, uncomplicated; Z88.0 Allergy status to penicillin; Z88.2 Allergy status to sulfonamides; Z79.899 Other long term (current) drug therapy
CPT/HCPCS: 99285

== ENCOUNTER 2022-10-25 01:56 | Emergency (ER) | payer MEDICARE, OTHER ==
[2022-10-25 02:03] VITALS: BP 140/88; PULSE 100; RESP 20; TEMP 98
[2022-10-25] MEDS ORDERED: DIPH,PERTUS(ACELL)TETVAC-LF 0.5 ML VIAL IM ONE (02:11)
[2022-10-25] MEDS ORDERED: BACITRACIN OINT 1 EACH PACKET TOPICAL ONE (02:11)
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
== END 2022-10-25 02:26 | disposition home or self-care (01) ==
LOC: EC 01:56
DX: S80.811A Abrasion, right lower leg, initial encounter (principal); F90.9 Attention-deficit hyperactivity disorder, unspecified type; F31.9 Bipolar disorder, unspecified; F17.200 Nicotine dependence, unspecified, uncomplicated; Z79.899 Other long term (current) drug therapy; Z88.0 Allergy status to penicillin; Z88.2 Allergy status to sulfonamides; Z23 Encounter for immunization; W50.1XXA Accidental kick by another person, initial encounter
CPT/HCPCS: 90471; 90715; 99283

== ENCOUNTER 2022-12-11 17:46 | Emergency (ER) | payer MEDICARE, OTHER ==
[2022-12-11 17:49] VITALS: BP 144/88; PULSE 80; RESP 20; TEMP 98
--- NOTE | 2022-12-11 18:04 | ED ---
General Adult HPI - General Chief complaint: Recheck/Abnormal Lab/Rx Stated complaint: inhaled insecticide Time Seen by Provider: 12/11/22 17:55 Source: patient, RN notes reviewed, old records reviewed Mode of arrival: ambulatory Limitations: no limitations - History of Present Illness Initial comments: This is a 32-year-old male who presents emergency department stating that he sprayed insecticide earlier today and got a little bit in his mouth. Patient states he is not having any symptoms now but he just wants to be safe so he came into the emergency department. Patient states he had a little bit of a sore throat earlier but none now. Patient denies any difficulty breathing shortness of breath per patient denies any chest pain. Patient denies any lightheadedness or dizziness. Patient denies any numbness or weakness. - Related Data Home Medications Medication Instructions Recorded Confirmed raNITIdine HCL [Zantac] 150 mg PO BID@,06/16/17 12/25/17 Atomoxetine HCl [Strattera] 100 mg PO DAILY@79912/25/17 12/25/17 LORazepam [Ativan] 0.5 mg PO TID@,,12/25/17 12/25/17 Loratadine [Claritin] 10 mg PO DAILY@79912/25/17 12/25/17 Montelukast [Singulair] 10 mg PO HS@209912/25/17 12/25/17 Propranolol [Inderal] 20 mg PO TID@,,12/25/17 12/25/17 lamoTRIgine [LaMICtal] 200 mg PO DAILY@79912/25/17 12/25/17 risperiDONE [RisperDAL] 4 mg PO HS@209912/25/17 12/25/17 Allergies Allergy/AdvReac Type Severity Reaction Status Date / Time hazelnut Allergy Anaphylaxis Verified 12/11/22 17:49 Penicillins Allergy Rash/Hives Verified 12/11/22 17:49 Sulfa (Sulfonamide Allergy Rash/Hives Verified 12/11/22 17:49 Antibiotics) Review of Systems ROS Statement: Those systems with pertinent positive or pertinent negative responses have been documented in the HPI. ROS Other: All systems not noted in ROS Statement are negative. Past Medical History Past Medical History: GERD/Reflux History of Any Multi-Drug Resistant Organisms: None Reported Additional Past Surgical History / Comment(s): Esophageal surgery, splenectomy 2018 Past Psychological History: ADD/ADHD, Bipolar, Depression Smoking Status: Current some day smoker, Vaper Past Alcohol Use History: Occasional Past Drug Use History: None Reported - Past Family History Father Family Medical History: Pulmonary Embolus Additional Family Medical History / Comment(s): Father is alive at age 60 with no major medical problems. Mother Additional Family Medical History / Comment(s): Patient does not know his mother but no she has an alcohol abuse problem and that she is alive. Brother(s) Additional Family Medical History / Comment(s): Patient has 1 brother that of SIDS. He also has 3 siblings which she does not know their medical history. General Exam - General Exam Comments Initial Comments: GENERAL: Patient is well-developed and well-nourished. Patient is nontoxic and well- hydrated and is in no acute distress. ENT: Neck is soft and supple. No significant lymphadenopathy is noted. Oropharynx is clear. Moist mucous membranes. Neck has full range of motion without eliciting any pain. EYES: The sclera were anicteric and conjunctiva were pink and moist. Extraocular movements were intact and pupils were equal round and reactive to light. Eyelids were unremarkable. PULMONARY: Unlabored respirations. Good breath sounds bilaterally. No audible rales rhonchi or wheezing was noted. CARDIOVASCULAR: There is a regular rate and rhythm without any murmurs gallops or rubs. ABDOMEN: Soft and nontender with normal bowel sounds. SKIN: Skin is clear with no lesions or rashes and otherwise unremarkable. NEUROLOGIC: Patient is alert and oriented x3. Cranial nerves II through XII are grossly intact. Motor and sensory are also intact. Normal speech, volume and content. Symmetrical smile. MUSCULOSKELETAL: Normal extremities with adequate strength and full range of motion. LYMPHATICS: No significant lymphadenopathy is noted PSYCHIATRIC: Normal psychiatric evaluation. Limitations: no limitations Course Vital Signs 12/11/22 17:47 Temperature 98 F Pulse Rate 80 Respiratory 20 Rate Blood Pressure 144/88 O2 Sat by Pulse 98 Oximetry Medical Decision Making - Medical Decision Making Was pt. sent in by a medical professional or institution (, PA, FOUNDRY WORKER APPRENTICE, urgent care, hospital, or shelter...) When possible be specific @ -No Did you speak to anyone other than the patient for history (EMS, parent, family, police, friend...)? What history was obtained from this source @ -No Did you review nursing and triage notes (agree or disagree)? Why? @ -I reviewed and agree with nursing and triage notes Were old charts reviewed (outside hosp., previous admission, EMS record, old E KG, old radiological studies, urgent care reports/EKG's, shelter records)? Report findings @ -No old charts were reviewed Differential Diagnosis (chest pain, altered mental status, abdominal pain women, abdominal pain men, vaginal bleeding, weakness, fever, dyspnea, syncope, headache, dizziness, GI bleed, back pain, seizure, CVA, palpatations, mental hea lth, musculoskeletal)? @ -Differential Dyspnea: Coronary syndrome, arrhythmia, bronchospasms secondary to chemical irritant, tamponade, asthma, COPD, pulmonary embolism, pneumonia, pneumothorax, pulmonary effusion, anaphylaxis, diabetic ketoacidosis, flailed chest, pulmonary contusion, diaphragmatic rupture, anemia, neuromuscular, this is not meant to be an all-inclusive list. EKG interpreted by me (3pts min.). @ -As above X-rays interpreted by me (1pt min.). @ -None done CT interpreted by me (1pt min.). @ -None done U/S interpreted by me (1pt. min.). @ -None done What testing was considered but not performed or refused? (CT, X-rays, U/S, labs)? Why? @ -None What meds were considered but not given or refused? Why? @ -None Did you discuss the management of the patient with other professionals (professionals i.e. , PA, FOUNDRY WORKER APPRENTICE, lab, RT, psych nurse, social media marketing analyst, splitter machine, teacher, mortgage loan officer, case operator)? Give summary @ -No Was smoking cessation discussed for >3mins.? @ -No Was critical care preformed (if so, how long)? @ -No Were there social determinants of health that impacted care today? How? (Homelessness, low income, unemployed, alcoholism, drug addiction, transportation, low edu. Level, literacy, decrease access to med. care, detention, rehab)? @ -No Was there de-escalation of care discussed even if they declined (Discuss DNR or withdrawal of care, Hospice)? DNR status @ -No What co-morbidities impacted this encounter? (DM, HTN, Smoking, COPD, CAD, Cancer, CVA, ARF, Chemo, Hep., AIDS, mental health diagnosis, sleep apnea, morbid obesity)? @ -None Was patient admitted / discharged? Hospital course, mention meds given and route, prescriptions, significant lab abnormalities, going to OR and other pertinent info. @ -Patient is currently not having any symptoms his lungs are clear heart rate was within normal range his pulse ox was normal and he stated he just wanted to double check to make sure he wasn't having any side effects to the insecticide Undiagnosed new problem with uncertain prognosis? @ -No Drug Therapy requiring intensive monitoring for toxicity (Heparin, Nitro, Insulin, Cardizem)? @ -No Were any procedures done? @ -No Diagnosis/symptom? @ -Inhalation chemicals Acute, or Chronic, or Acute on Chronic? @ -Acute Uncomplicated (without systemic symptoms) or Complicated (systemic symptoms)? @ -Uncomplicated Side effects of treatment? @ -No Exacerbation, Progression, or Severe Exacerbation? @ -No Poses a threat to life or bodily function? How? (Chest pain, [place], [place], pneumonia, PE, COPD, DKA, ARF, appy, cholecystitis, CVA, Diverticulitis, Homicidal, Suicidal, threat to staff... and all critical care pts) @ -No Disposition Clinical Impression: Inhalation of gaseous substance Disposition: HOME SELF-CARE Condition: Good Additional Instructions: Patient should stop smoking and stop baby. Patient should return to the emergency department as any difficulty breathing or any new symptoms. Is patient prescribed a controlled substance at d/c from ED?: No Referrals: Nestor Granados [Primary Care Provider] - 1-2 days Time of Disposition: 18:04
== END 2022-12-11 18:26 | disposition home or self-care (01) ==
LOC: EC 17:46
DX: T60.0X1A Toxic effect of organophosphate and carbamate insecticides, accidental (unintentional), initial encounter (principal); F31.9 Bipolar disorder, unspecified; F90.9 Attention-deficit hyperactivity disorder, unspecified type; F17.200 Nicotine dependence, unspecified, uncomplicated; Z88.0 Allergy status to penicillin; Z88.2 Allergy status to sulfonamides; Z88.8 Allergy status to other drugs, medicaments and biological substances
CPT/HCPCS: 99283

== ENCOUNTER 2023-05-26 23:08 | Emergency (ER) | payer MEDICARE, OTHER ==
[2023-05-26 23:27] VITALS: TEMP 97.8
--- NOTE | 2023-05-26 23:49 | ED ---
General Adult HPI - General Chief complaint: Wound/Laceration Stated complaint: cut rt pinky Time Seen by Provider: 05/26/23 23:28 Source: patient Mode of arrival: ambulatory Limitations: no limitations - History of Present Illness Initial comments: Dictation was produced using [employer] dictation software. please excuse any grammatical, word or spelling errors. Chief Complaint: 32-year-old male with abrasion to his right fifth digit History of Present Illness: Patient 32-year-old male who was helping a friend move. Denies any sort of inciting event. After helping his friend he noticed there was a little scratch on his pinky finger. Patient Nuys any pain. Denies any bleeding. Denies any loss of function of his digit. The ROS documented in this emergency department record has been reviewed and confirmed by me. Those systems with pertinent positive or negative responses have been documented in the HPI. All other systems are other negative and/or noncontributory. - Related Data Home Medications Medication Instructions Recorded Confirmed raNITIdine HCL [Zantac] 150 mg PO BID@06/16/17 12/25/17 Atomoxetine HCl [Strattera] 100 mg PO DAILY@79912/25/17 12/25/17 LORazepam [Ativan] 0.5 mg PO TID@12/25/17 12/25/17 Loratadine [Claritin] 10 mg PO DAILY@79912/25/17 12/25/17 Montelukast [Singulair] 10 mg PO HS@209912/25/17 12/25/17 Propranolol [Inderal] 20 mg PO TID@12/25/17 12/25/17 lamoTRIgine [LaMICtal] 200 mg PO DAILY@79912/25/17 12/25/17 risperiDONE [RisperDAL] 4 mg PO HS@209912/25/17 12/25/17 Allergies Allergy/AdvReac Type Severity Reaction Status Date / Time hazelnut Allergy Anaphylaxis Verified 05/26/23 23:17 Penicillins Allergy Rash/Hives Verified 05/26/23 23:17 Sulfa (Sulfonamide Allergy Rash/Hives Verified 05/26/23 23:17 Antibiotics) Review of Systems ROS Statement: Those systems with pertinent positive or pertinent negative responses have been documented in the HPI. ROS Other: All systems not noted in ROS Statement are negative. Past Medical History Past Medical History: GERD/Reflux History of Any Multi-Drug Resistant Organisms: None Reported Additional Past Surgical History / Comment(s): Esophageal surgery, splenectomy 2018 Past Psychological History: ADD/ADHD, Bipolar, Depression Smoking Status: Current some day smoker, Vaper Past Alcohol Use History: Occasional Past Drug Use History: None Reported - Past Family History Father Family Medical History: Pulmonary Embolus Additional Family Medical History / Comment(s): Father is alive at age 60 with no major medical problems. Mother Additional Family Medical History / Comment(s): Patient does not know his mother but no she has an alcohol abuse problem and that she is alive. Brother(s) Additional Family Medical History / Comment(s): Patient has 1 brother that of SIDS. He also has 3 siblings which she does not know their medical history. General Exam - General Exam Comments Initial Comments: Visual Physical Exam Vital signs reviewed General: Well-appearing, nontoxic, no acute distress. Head: Normocephalic, atraumatic Eyes: PERRLA, EOMI ENT: Airway patent Chest: Nonlabored breathing Skin: No visual rash, normal skin tone Neuro: Alert and oriented 3 Musculoskeletal: No gross abnormalities Right hand: Abrasion to the fifth digit over the dorsal surface of the right PIP, no exposed dermis, finger function intact Limitations: no limitations Course Vital Signs 05/26/23 23:14 Temperature 97.8 F Pulse Rate 98 Respiratory 18 Rate Blood Pressure 147/85 O2 Sat by Pulse 98 Oximetry Medical Decision Making - Medical Decision Making Was pt. sent in by a medical professional or institution (, PA, MARINE SERVICES TECHNICIAN, urgent care, hospital, or skilled nursing...) When possible be specific @ -No Did you speak to anyone other than the patient for history (EMS, parent, family, police, friend...)? What history was obtained from this source @ -No Did you review nursing and triage notes (agree or disagree)? Why? @ -I reviewed and agree with nursing and triage notes Were old charts reviewed (outside hosp., previous admission, EMS record, old EKG, old radiological studies, urgent care reports/EKG's, skilled nursing records)? Report findings @ -No old charts were reviewed Differential Diagnosis (chest pain, altered mental status, abdominal pain women, abdominal pain men, vaginal bleeding, musculoskeletal, weakness, fever, dyspnea, syncope, headache, dizziness, GI bleed, back pain, seizure, CVA, palpatations, mental health)? @ -Not applicable EKG interpreted by me (3pts min.). @ -None done X-rays interpreted by me (1pt min.). @ -X-ray of the hand is nonacute CT interpreted by me (1pt min.). @ -None done U/S interpreted by me (1pt. min.). @ -None done What testing was considered but not performed or refused? (CT, X-rays, U/S, labs)? Why? @ -None What meds were considered but not given or refused? Why? @ -None Did you discuss the management of the patient with other professionals (professionals i.e. , PA, MARINE SERVICES TECHNICIAN, lab, RT, psych nurse, social insurance specialist, communications supervisor, teacher, supply requirements officer, manager case)? Give summary @ -No Was smoking cessation discussed for >3mins.? @ -No Was critical care preformed (if so, how long)? @ -No Were there social determinants of health that impacted care today? How? (Homelessness, low income, unemployed, alcoholism, drug addiction, transportation, low edu. Level, literacy, decrease access to med. care, correction, rehab)? @ -No Was there de-escalation of care discussed even if they declined (Discuss DNR or withdrawal of care, Hospice)? DNR status @ -No What co-morbidities impacted this encounter? (DM, HTN, Smoking, COPD, CAD, Cancer, CVA, ARF, Chemo, Hep., AIDS, mental health diagnosis, sleep apnea, morbid obesity)? @ -None Was patient admitted / discharged? Hospital course, mention meds given and route, prescriptions, significant lab abnormalities, going to OR and other pertinent info. @ -32-year-old male with digit abrasion. Vital signs stable. X-rays unremarkable. Tetanus updated. Patient discharged Undiagnosed new problem with uncertain prognosis? @ -No Drug Therapy requiring intensive monitoring for toxicity (Heparin, Nitro, Insulin, Cardizem)? @ -No Were any procedures done? @ -No Diagnosis/symptom? Acute, or Chronic, or Acute on Chronic? Uncomplicated (without systemic symptoms) or Complicated (systemic symptoms)? @ -Finger abrasion Side effects of treatment? @ -No Exacerbation, Progression, or Severe Exacerbation? @ -No Poses a threat to life or bodily function? How? (Chest pain, [place], [place], pneumonia, PE, COPD, DKA, ARF, appy, cholecystitis, CVA, Diverticulitis, Homicidal, Suicidal, threat to staff... and all critical care pts) @ -No Disposition Clinical Impression: Abrasion Disposition: HOME SELF-CARE Instructions (If sedation given, give patient instructions): Abrasion (ED) Is patient prescribed a controlled substance at d/c from ED?: No Referrals: Nestor Granados [Primary Care Provider] - 1-2 days Time of Disposition: 23:49
[2023-05-27] MEDS: LIDOCAINE 1% INJ 10MG/ML (20 ML MDV) SQ ONE (00:06)
[2023-05-27] MEDS: DIPH,PERTUS(ACELL)TETVAC-LF 0.5 ML VIAL IM ONE (00:07)
--- NOTE | 2023-05-27 00:17 | XR ---
EXAM: XR Right Fingers, 2 or More Views CLINICAL HISTORY: ITS.REASON XR Reason: abrasion TECHNIQUE: Frontal, lateral and oblique views of the fingers of the right hand. COMPARISON: No relevant prior studies available. FINDINGS: Bones/joints: Unremarkable. No acute fracture. No dislocation. Soft tissues: Unremarkable. No radiopaque foreign body. IMPRESSION: Normal x-rays of the visualized right fingers.
[2023-05-27 01:23] VITALS: BP 151/84; PULSE 75; RESP 16
== END 2023-05-27 00:56 | disposition home or self-care (01) ==
LOC: EC 23:08
DX: S60.416A Abrasion of right little finger, initial encounter (principal); K21.9 Gastro-esophageal reflux disease without esophagitis; F31.9 Bipolar disorder, unspecified; F17.290 Nicotine dependence, other tobacco product, uncomplicated; Z79.899 Other long term (current) drug therapy; Z88.0 Allergy status to penicillin; Z88.2 Allergy status to sulfonamides; Z91.018 Allergy to other foods; Z23 Encounter for immunization; W26.9XXA Contact with unspecified sharp object(s), initial encounter; Y93.89 Activity, other specified
CPT/HCPCS: 90471; 90715; 99282

== ENCOUNTER 2023-08-23 15:34 | Emergency (ER) | payer MEDICARE ==
[2023-08-23 16:04] VITALS: TEMP 98
--- NOTE | 2023-08-23 16:40 | XR ---
PROCEDURE: XR wrist complete LT - 4V DATE AND TIME: 08/23/2023 4:29 PM CLINICAL INDICATION: PH[facility]; Fall TECHNIQUE: Department protocol COMPARISON: None FINDINGS: No acute soft tissue findings. No acute fracture/malalignment. No focal osseous lesions. IMPRESSION: No acute radiographic process.
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
[2023-08-23 17:44] VITALS: BP 126/72; PULSE 68; RESP 16
== END 2023-08-23 16:20 | disposition home or self-care (01) ==
LOC: EC 15:34
DX: S63.502A Unspecified sprain of left wrist, initial encounter (principal); F17.290 Nicotine dependence, other tobacco product, uncomplicated; Z88.2 Allergy status to sulfonamides; Z88.0 Allergy status to penicillin; Z88.8 Allergy status to other drugs, medicaments and biological substances; V18.2XXA Unspecified pedal cyclist injured in noncollision transport accident in nontraffic accident, initial encounter
CPT/HCPCS: 99283

== ENCOUNTER 2024-04-06 00:32 | Emergency (ER) | payer MEDICARE ==
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
--- NOTE | 2024-04-06 03:29 | XR ---
EXAM: XR Chest, 2 Views CLINICAL HISTORY: chest pain rib pain x years TECHNIQUE: Frontal and lateral views of the chest. COMPARISON: No relevant prior studies available. FINDINGS: Lungs: Unremarkable. No consolidation. Pleural space: Unremarkable. Mediastinum: Unremarkable. Normal mediastinal contour. Bones/joints: Suspect bilateral old rib fractures. IMPRESSION: No acute findings in the chest.
[2024-04-06] MEDS: IBUPROFEN 600 MG TAB PO STA (04:35)
[2024-04-06 04:37] VITALS: BP 133/81; PULSE 81; RESP 17; TEMP 97.7
== END 2024-04-06 04:41 | disposition home or self-care (01) ==
LOC: EC 00:32
DX: S20.219A Contusion of unspecified front wall of thorax, initial encounter (principal); F17.290 Nicotine dependence, other tobacco product, uncomplicated; Z88.0 Allergy status to penicillin; Z88.1 Allergy status to other antibiotic agents; Z88.2 Allergy status to sulfonamides; W01.0XXA Fall on same level from slipping, tripping and stumbling without subsequent striking against object, initial encounter
CPT/HCPCS: 71046; 99284

== ENCOUNTER 2024-06-03 08:27 | Emergency (ER) | payer MEDICARE ==
[2024-06-03 08:32] VITALS: BP 136/88; PULSE 78; RESP 20; TEMP 97.4
--- NOTE | 2024-06-03 08:41 | ED ---
General Adult HPI - General Chief complaint: Headache Stated complaint: headaches Time Seen by Provider: 06/03/24 08:33 Source: patient, RN notes reviewed, old records reviewed Mode of arrival: ambulatory Limitations: no limitations - History of Present Illness Initial comments: 33-year-old male presenting for evaluation of headaches over the past 1 week. This is a mild generalized headache associated with playing video games. Patient denies sudden onset. Denies vomiting. Denies fever. Denies focal numbness or weakness. Patient does not have any Tylenol or Motrin at home. - Related Data Home Medications Medication Instructions Recorded Confirmed raNITIdine HCL [Zantac] 150 mg PO BID@,06/16/17 12/25/17 Atomoxetine HCl [Strattera] 100 mg PO DAILY@79912/25/17 12/25/17 LORazepam [Ativan] 0.5 mg PO TID@,,12/25/17 12/25/17 Loratadine [Claritin] 10 mg PO DAILY@79912/25/17 12/25/17 Montelukast [Singulair] 10 mg PO HS@209912/25/17 12/25/17 Propranolol [Inderal] 20 mg PO TID@,,12/25/17 12/25/17 lamoTRIgine [LaMICtal] 200 mg PO DAILY@79912/25/17 12/25/17 risperiDONE [RisperDAL] 4 mg PO HS@209912/25/17 12/25/17 Previous Rx's Medication Instructions Recorded Ibuprofen [Motrin] 600 mg PO Q8HR PRN #24 tab 06/03/24 Allergies Allergy/AdvReac Type Severity Reaction Status Date / Time hazelnut Allergy Anaphylaxis Verified 06/03/24 08:32 oxycodone Allergy Confusion Verified 06/03/24 08:32 Penicillins Allergy Rash/Hives Verified 06/03/24 08:32 Sulfa (Sulfonamide Allergy Rash/Hives Verified 06/03/24 08:32 Antibiotics) Review of Systems ROS Statement: Those systems with pertinent positive or pertinent negative responses have been documented in the HPI. ROS Other: All systems not noted in ROS Statement are negative. Past Medical History Past Medical History: GERD/Reflux History of Any Multi-Drug Resistant Organisms: None Reported Additional Past Surgical History / Comment(s): Esophageal surgery, splenectomy 2018 Past Psychological History: ADD/ADHD, Bipolar, Depression Smoking Status: Current some day smoker, Vaper Past Alcohol Use History: Occasional Past Drug Use History: None Reported - Past Family History Father Family Medical History: Pulmonary Embolus Additional Family Medical History / Comment(s): Father is alive at age 60 with no major medical problems. Mother Additional Family Medical History / Comment(s): Patient does not know his mother but no she has an alcohol abuse problem and that she is alive. Brother(s) Additional Family Medical History / Comment(s): Patient has 1 brother that of SIDS. He also has 3 siblings which she does not know their medical history. General Exam Limitations: no limitations General appearance: alert, in no apparent distress Head exam: Present: atraumatic, normocephalic Eye exam: Present: normal appearance, PERRL ENT exam: Present: normal exam Neck exam: Present: normal inspection Respiratory exam: Present: normal lung sounds bilaterally. Absent: respiratory distress Cardiovascular Exam: Present: regular rate, normal rhythm GI/Abdominal exam: Present: soft. Absent: distended, tenderness, guarding Extremities exam: Present: normal inspection, normal capillary refill Neurological exam: Present: alert, oriented X3, CN II-XII intact, normal gait. Absent: motor sensory deficit Psychiatric exam: Present: normal affect, normal mood Skin exam: Present: warm, dry, intact Course Vital Signs 06/03/24 08:28 Temperature 97.4 F L Pulse Rate 78 Respiratory 20 Rate Blood Pressure 136/88 O2 Sat by Pulse 97 Oximetry Medical Decision Making - Medical Decision Making Was pt. sent in by a medical professional or institution (, PA, MANAGER PRODUCE, urgent care, hospital, or shelter...) When possible be specific @ -No Did you speak to anyone other than the patient for history (EMS, parent, family, police, friend...)? What history was obtained from this source @ -No Did you review nursing and triage notes (agree or disagree)? Why? @ -I reviewed and agree with nursing and triage notes Were old charts reviewed (outside hosp., previous admission, EMS record, old EKG, old radiological studies, urgent care reports/EKG's, shelter records)? Report findings @ -No old charts were reviewed Differential Headache: Migraine, tension, cluster, carbon monoxide, central venous thrombosis, pension karma temporal arteritis, acute closure glaucoma, intercranial hemorrhage, mastoiditis, sinusitis, head injury, this is not meant to be an all-inclusive list. EKG interpreted by me (3pts min.). @ -As above X-rays interpreted by me (1pt min.). @ -None done CT interpreted by me (1pt min.). @ -None done U/S interpreted by me (1pt. min.). @ -None done What testing was considered but not performed or refused? (CT, X-rays, U/S, labs)? Why? @ -None What meds were considered but not given or refused? Why? @ -None Did you discuss the management of the patient with other professionals (professionals i.e. , PA, MANAGER PRODUCE, lab, RT, psych nurse, rn social services, table machine operator, teacher, county records management officer, field nurse case manager)? Give summary @ -No Was smoking cessation discussed for >3mins.? @ -No Was critical care preformed (if so, how long)? @ -No Were there social determinants of health that impacted care today? How? (Homelessness, low income, unemployed, alcoholism, drug addiction, transportation, low edu. Level, literacy, decrease access to med. care, correction, rehab)? @ -No Was there de-escalation of care discussed even if they declined (Discuss DNR or withdrawal of care, Hospice)? DNR status @ -No What co-morbidities impacted this encounter? (DM, HTN, Smoking, COPD, CAD, Cancer, CVA, ARF, Chemo, Hep., AIDS, mental health diagnosis, sleep apnea, morbid obesity)? @ -None Was patient admitted / discharged? Hospital course, mention meds given and route, prescriptions, significant lab abnormalities, going to OR and other pertinent info. @ -33-year-old male with headache associated with playing video games. Patient is instructed not to use his videogame system or watch television. He is instructed to rest and drink plenty of fluids. He also states that he does not have any headache medication at home he is prescribed Motrin for his current headaches. Undiagnosed new problem with uncertain prognosis? @ -No Drug Therapy requiring intensive monitoring for toxicity (Heparin, Nitro, Insulin, Cardizem)? @ -No Were any procedures done? @ -No Diagnosis/symptom? @ -Headache Acute, or Chronic, or Acute on Chronic? @ -[Acute Uncomplicated (without systemic symptoms) or Complicated (systemic symptoms)? @ -Default Side effects of treatment? @ -No Exacerbation, Progression, or Severe Exacerbation? @ -No Poses a threat to life or bodily function? How? (Chest pain, [place], [place], pneumonia, PE, COPD, DKA, ARF, appy, cholecystitis, CVA, Diverticulitis, Homicidal, Suicidal, threat to staff... and all critical care pts) @ -No Disposition Clinical Impression: Headache Disposition: HOME SELF-CARE Condition: Good Instructions (If sedation given, give patient instructions): Acute Headache (ED) Prescriptions: Ibuprofen [Motrin] 600 mg PO Q8HR PRN #24 tab PRN Reason: Headache Is patient prescribed a controlled substance at d/c from ED?: No Referrals: Nestor Granados [Primary Care Provider] - 1-2 days Time of Disposition: 08:40
== END 2024-06-03 08:50 | disposition home or self-care (01) ==
LOC: EC 08:27
DX: R51.9 Headache, unspecified (principal); F17.290 Nicotine dependence, other tobacco product, uncomplicated; Z88.0 Allergy status to penicillin; Z88.1 Allergy status to other antibiotic agents; Z88.2 Allergy status to sulfonamides; Z88.5 Allergy status to narcotic agent; Z91.018 Allergy to other foods
CPT/HCPCS: 99283

== ENCOUNTER 2024-06-15 16:32 | Emergency (ER) | payer MEDICARE ==
--- NOTE | 2024-06-15 17:32 | XR ---
EXAMINATION TYPE: XR chest 2V DATE OF EXAM: 06/15/2024 5:27 PM COMPARISON: Prior chest radiograph 04/06/2024. CLINICAL INDICATION: Male, 33 years old with history of SOB; [facility] TECHNIQUE: XR chest 2V Frontal and lateral views of the chest. FINDINGS: Lungs/Pleura: There is no evidence of pleural effusion, focal consolidation, or pneumothorax. Pulmonary vascularity: Unremarkable. Heart/mediastinum: Cardiomegaly. Musculoskeletal: No acute osseous pathology. Other findings: None IMPRESSION: No acute cardiopulmonary disease/process. [facility], , 06/15/2024 5:30 PM
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
[2024-06-15 18:15] LABS: Influenza A Not Detected (Not Detectd); Influenza B Not Detected (Not Detectd); RSV Not Detected (Not Detectd)
[2024-06-15 19:12] VITALS: BP 137/68; PULSE 77; RESP 20; TEMP 98.7
== END 2024-06-15 19:10 | disposition home or self-care (01) ==
LOC: EC 16:32
DX: B34.9 Viral infection, unspecified (principal); F17.290 Nicotine dependence, other tobacco product, uncomplicated
CPT/HCPCS: 71046; 87636; 99285

== ENCOUNTER 2024-06-27 00:44 | Emergency (ER) | payer MEDICARE ==
[2024-06-27 01:38] LABS: Basophils # (A) 0.1 k/uL (0-0.2); Basophils % (A) 0 %; Eosinophils # (A) 0.3 k/uL (0-0.7); Eosinophils % (A) 2 %; HCT 46.8 % (39.0-53.0); HGB 15.3 gm/dL (13.0-17.5); Lymphocytes # (A) 2.4 k/uL (1.0-4.8); Lymphocytes % (A) 19 %; MCH 30.2 pg (25.0-35.0); MCHC 32.7 g/dL (31.0-37.0); MCV 92.4 fL (80.0-100.0); Mean Platelet Volume 8.7; Monocytes # (A) 0.8 k/uL (0-1.0); Monocytes % (A) 7 %; Neutrophils # (A) 8.6 k/uL (1.3-7.7); Neutrophils % (A) 69 %; Platelet Count 251 k/uL (150-450); RBC 5.06 m/uL (4.30-5.90); RDW 13.1 % (11.5-15.5); WBC 12.5 k/uL (3.8-10.6)
[2024-06-27 01:49] LABS: ALT 27 U/L (4-49); AST 35 U/L (17-59); African American GFR (CKD) >90 (>60 ml/min/1.73 sqM); Albumin 4.5 g/dL (3.5-5.0); Alkaline Phosphatase 95 U/L (38-126); Anion Gap 9 mmol/L; Blood Urea Nitrogen 15 mg/dL (9-20); Calcium 9.9 mg/dL (8.4-10.2); Carbon Dioxide 27 mmol/L (22-30); Chloride 103 mmol/L (98-107); Glucose 116 mg/dL (74-99); INR 1.1 (<1.2); Magnesium 2.1 mg/dL (1.6-2.3); Non-African American GFR(CKD) >90 (>60 ml/min/1.73 sqM); Partial Thromboplastin Time 23.8 sec (22.0-30.0); Potassium 3.8 mmol/L (3.5-5.1); Sodium 139 mmol/L (137-145); Total Bilirubin 0.6 mg/dL (0.2-1.3); Total Protein 7.3 g/dL (6.3-8.2)
--- NOTE | 2024-06-27 02:52 | XR ---
EXAM: XR Chest, 2 Views CLINICAL HISTORY: ITS.REASON XR Reason: Chest Pain TECHNIQUE: Frontal and lateral views of the chest. COMPARISON: No relevant prior studies available. FINDINGS: Lungs: No consolidation or mass. Pleural space: No effusion. Heart: No cardiomegaly. Bones/joints: No acute findings. IMPRESSION: No acute cardiopulmonary process.
[2024-06-27 02:58] VITALS: RESP 18
--- NOTE | 2024-06-27 04:55 | ED ---
Chest Pain HPI - General Chief Complaint: Chest Pain Stated Complaint: chest Time Seen by Provider: 06/27/24 00:46 Source: EMS Mode of arrival: EMS Limitations: no limitations - History of Present Illness Initial Comments: This patient is 33-year-old man presenting with episode of chest pain that lasted approximately 10 minutes. Patient states that he had been out in the [place] bus [place] and the chest pain came on. MD Complaint: chest pain Onset/Timin -: minutes(s) Onset: during rest Pain Location: substernal Pain Radiation: none Severity: moderate Quality: aching Consistency: constant Improves With: nothing Worsens With: nothing Treatments Prior to Arrival: none - Related Data Home Medications Medication Instructions Recorded Confirmed raNITIdine HCL [Zantac] 150 mg PO BID@06/16/17 12/25/17 Atomoxetine HCl [Strattera] 100 mg PO DAILY@79912/25/17 12/25/17 LORazepam [Ativan] 0.5 mg PO TID@12/25/17 12/25/17 Loratadine [Claritin] 10 mg PO DAILY@79912/25/17 12/25/17 Montelukast [Singulair] 10 mg PO HS@209912/25/17 12/25/17 Propranolol [Inderal] 20 mg PO TID@,,12/25/17 12/25/17 lamoTRIgine [LaMICtal] 200 mg PO DAILY@79912/25/17 12/25/17 risperiDONE [RisperDAL] 4 mg PO HS@209912/25/17 12/25/17 Previous Rx's Medication Instructions Recorded Ibuprofen [Motrin] 600 mg PO Q8HR PRN #24 tab 06/03/24 Allergies Allergy/AdvReac Type Severity Reaction Status Date / Time hazelnut Allergy Anaphylaxis Verified 07/07/24 23:33 naproxen Allergy Anaphylaxis Verified 07/07/24 23:33 oxycodone Allergy Confusion Verified 07/07/24 23:33 Penicillins Allergy Rash/Hives Verified 07/07/24 23:33 Sulfa (Sulfonamide Allergy Rash/Hives Verified 07/07/24 23:33 Antibiotics) Review of Systems ROS Statement: Those systems with pertinent positive or pertinent negative responses have been documented in the HPI. ROS Other: All systems not noted in ROS Statement are negative. Constitutional: Denies: fever, chills Respiratory: Denies: cough, dyspnea Cardiovascular: Reports: chest pain. Denies: palpitations, edema, syncope Gastrointestinal: Denies: abdominal pain, nausea, vomiting, diarrhea Genitourinary: Denies: dysuria, hematuria Musculoskeletal: Denies: back pain Skin: Denies: rash Neurological: Denies: headache, weakness, numbness EKG Findings - EKG Results: EKG: interpreted by ERMD, sinus rhythm, normal axis, normal QRS - Blocks, [place], Hypertrophy, ST Abn: Repolarization changes or abnormalities: nonspecific abnormality, ST segment, and/or T wave Past Medical History Past Medical History: GERD/Reflux History of Any Multi-Drug Resistant Organisms: None Reported Additional Past Surgical History / Comment(s): Esophageal surgery, splenectomy 2018 Past Psychological History: ADD/ADHD, Bipolar, Depression Smoking Status: Current some day smoker, Vaper Past Alcohol Use History: Occasional Past Drug Use History: None Reported - Past Family History Father Family Medical History: Pulmonary Embolus Additional Family Medical History / Comment(s): Father is alive at age 60 with no major medical problems. Mother Additional Family Medical History / Comment(s): Patient does not know his mother but no she has an alcohol abuse problem and that she is alive. Brother(s) Additional Family Medical History / Comment(s): Patient has 1 brother that of SIDS. He also has 3 siblings which she does not know their medical history. General Exam General appearance: alert, in no apparent distress Head exam: Present: atraumatic, normocephalic Eye exam: Present: normal appearance. Absent: scleral icterus, conjunctival injection ENT exam: Present: normal oropharynx Neck exam: Present: normal inspection Respiratory exam: Present: normal lung sounds bilaterally, chest wall tenderness. Absent: respiratory distress, wheezes, rales, rhonchi, stridor, accessory muscle use Cardiovascular Exam: Present: regular rate, normal rhythm, normal heart sounds. Absent: systolic murmur, diastolic murmur, rubs, gallop GI/Abdominal exam: Present: soft. Absent: distended, tenderness, guarding, rebound, rigid, mass Extremities exam: Present: normal inspection, normal capillary refill. Absent: pedal edema, calf tenderness Back exam: Present: normal inspection. Absent: CVA tenderness (R), CVA tenderness (L) Neurological exam: Present: alert Skin exam: Present: warm, dry, intact, normal color. Absent: rash Course Vital Signs 06/27/24 06/27/24 06/27/24 01:16 01:18 02:40 Temperature 97.4 F L Pulse Rate 76 60 Respiratory 20 18 Rate Blood Pressure 121/78 121/78 106/77 O2 Sat by Pulse 98 98 Oximetry 06/27/24 06/27/24 06/27/24 03:46 04:00 05:44 Temperature 97.5 F L 97.6 F Pulse Rate 50 L 54 L Respiratory 18 Rate Blood Pressure 112/85 109/61 108/85 O2 Sat by Pulse 98 98 Oximetry Chest Pain [facility] The patient had chest x-ray that I interpreted as negative for acute infiltrate, pneumothorax, congestive heart failure Was pt. sent in by a medical professional or institution (, PA, FIRE MANAGEMENT TECHNICIAN, urgent care, hospital, or skilled nursing...) When possible be specific @ -[No] Did you speak to anyone other than the patient for history (EMS, parent, family, police, friend...)? What history was obtained from this source @ -[No] Did you review nursing and triage notes (agree or disagree)? Why? @ -[I reviewed and agree with nursing and triage notes] Were old charts reviewed (outside hosp., previous admission, EMS record, old EKG, old radiological studies, urgent care reports/EKG's, skilled nursing records)? Report findings @ -[No old charts were reviewed] Differential Diagnosis (chest pain, altered mental status, abdominal pain women, abdominal pain men, vaginal bleeding, weakness, fever, dyspnea, syncope, headache, dizziness, GI bleed, back pain, seizure, CVA, palpatations, mental health, musculoskeletal)? @ -[Differential Chest Pain: Stable Angina, Unstable Angina, STEMI, NSTEMI Aortic Dissection, Pneumothorax, Musculoskeletal, Esophageal Spasm GERD, Cholecystitis, Pancreatitis, Zoster, this is not meant to be an all-inclusive list. EKG interpreted by me (3pts min.). @ -[I interpreted as above X-rays interpreted by me (1pt min.). @ -[I interpreted as above CT interpreted by me (1pt min.). @ -[None done] U/S interpreted by me (1pt. min.). @ -[None done] What testing was considered but not performed or refused? (CT, X-rays, U/S, labs)? Why? @ -[None] What meds were considered but not given or refused? Why? @ -[None] Did you discuss the management of the patient with other professionals (professionals i.e. Dr., PA, FIRE MANAGEMENT TECHNICIAN, lab, RT, psych nurse, social science analyst, clinical transplant coordinator, teacher, tactical deception plans officer, case reviewer)? Give summary @ -[No] Was smoking cessation discussed for >3mins.? @ -[No] Was critical care preformed (if so, how long)? @ -[No] Were there social determinants of health that impacted care today? How? (Homelessness, low income, unemployed, alcoholism, drug addiction, transportation, low edu. Level, literacy, decrease access to med. care, long term, rehab)? @ -[No] Was there de-escalation of care discussed even if they declined (Discuss DNR or withdrawal of care, Hospice)? DNR status @ -[No] What co-morbidities impacted this encounter? (DM, HTN, Smoking, COPD, CAD, Cancer, CVA, ARF, Chemo, Hep., AIDS, mental health diagnosis, sleep apnea, morbid obesity)? @ -[None] Was patient admitted / discharged? Hospital course, mention meds given and route, prescriptions, significant lab abnormalities, going to OR and other pertinent info. @ -[Patient is 33-year-old man with episode of chest pain that has resolved. His workup is unremarkable. At this point patient stable to have further evaluation as outpatient. Discussed appropriate follow-up and return parameters. Undiagnosed new problem with uncertain prognosis? @ -[No] Drug Therapy requiring intensive monitoring for toxicity (Heparin, Nitro, Insulin, Cardizem)? @ -[No] Were any procedures done? @ -[No] Diagnosis/symptom? @ -[Acute chest pain Acute, or Chronic, or Acute on Chronic? @ -[Acute Uncomplicated (without systemic symptoms) or Complicated (systemic symptoms)? @ -[default] Side effects of treatment? @ -[No] Exacerbation, Progression, or Severe Exacerbation? @ -[No] Poses a threat to life or bodily function? How? (Chest pain, [place], [place], pneumonia, PE, COPD, DKA, ARF, appy, cholecystitis, CVA, Diverticulitis, Homicidal, Suicidal, threat to staff... and all critical care pts) @ -[No] All treatments are based on ideal body weight as in ED triage Disposition Clinical Impression: Chest pain Disposition: HOME SELF-CARE Condition: Good Instructions (If sedation given, give patient instructions): Chest Pain (ED) Is patient prescribed a controlled substance at d/c from ED?: No Referrals: Nestor Granados [Primary Care Provider] - 1-2 days
[2024-06-27 05:48] VITALS: BP 108/85; PULSE 54; TEMP 97.6
== END 2024-06-27 05:58 | disposition home or self-care (01) ==
LOC: EC 00:44
DX: R07.89 Other chest pain (principal); F17.290 Nicotine dependence, other tobacco product, uncomplicated; Z88.2 Allergy status to sulfonamides; Z88.5 Allergy status to narcotic agent; Z88.0 Allergy status to penicillin; Z88.1 Allergy status to other antibiotic agents; Z91.018 Allergy to other foods
CPT/HCPCS: 36415; 71046; 80053; 83735; 84484; 85025; 85610; 85730; 93005; 99285

== ENCOUNTER 2024-07-02 19:48 | Emergency (ER) | payer MEDICARE ==
[2024-07-02 21:29] LABS: Basophils # (A) 0.1 k/uL (0-0.2); Basophils % (A) 1 %; Eosinophils # (A) 0.3 k/uL (0-0.7); Eosinophils % (A) 3 %; HCT 48.2 % (39.0-53.0); HGB 16.1 gm/dL (13.0-17.5); Lymphocytes # (A) 2.8 k/uL (1.0-4.8); Lymphocytes % (A) 34 %; MCH 30.9 pg (25.0-35.0); MCHC 33.3 g/dL (31.0-37.0); MCV 92.7 fL (80.0-100.0); Mean Platelet Volume 8.3; Monocytes # (A) 0.5 k/uL (0-1.0); Monocytes % (A) 7 %; Neutrophils # (A) 4.3 k/uL (1.3-7.7); Neutrophils % (A) 52 %; Platelet Count 284 k/uL (150-450); RDW 13.1 % (11.5-15.5); WBC 8.3 k/uL (3.8-10.6)
[2024-07-02 21:47] LABS: ALT 23 U/L (4-49); AST 27 U/L (17-59); African American GFR (CKD) >90 (>60 ml/min/1.73 sqM); Albumin 4.5 g/dL (3.5-5.0); Alcohol <10 mg/dL; Alkaline Phosphatase 117 U/L (38-126); Anion Gap 7 mmol/L; Blood Urea Nitrogen 12 mg/dL (9-20); Calcium 9.7 mg/dL (8.4-10.2); Carbon Dioxide 30 mmol/L (22-30); Chloride 102 mmol/L (98-107); Glucose 105 mg/dL (74-99); Magnesium 1.9 mg/dL (1.6-2.3); Non-African American GFR(CKD) >90 (>60 ml/min/1.73 sqM); Potassium 4.4 mmol/L (3.5-5.1); Sodium 139 mmol/L (137-145); Total Bilirubin 0.6 mg/dL (0.2-1.3); Total Protein 7.4 g/dL (6.3-8.2)
--- NOTE | 2024-07-02 22:02 | CT ---
EXAMINATION TYPE: CT brain wo con DATE OF EXAM: 07/02/2024 COMPARISON: NONE CLINICAL INDICATION: Male, 33 years old with history of seizure activity, Pt states he was sleeping a nd his girlfriend told him he had seizures while he was sleeping because of shaking, TECHNIQUE: CT scan of the head is performed without contrast. CT DLP: 1186.7 mGycm. Automated Exposure Control for Dose Reduction was Utilized. FINDINGS: There is no acute intracranial hemorrhage, mass effect, or midline shift identified. The ventricles and sulci are within normal limits in size. 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 Nasal septum is deviated to right of midline. The globes are intact and the visualized sinuses ar e clear. IMPRESSION: No acute intracranial hemorrhage or midline shift is seen. Consider nonemergent MRI study to further evaluate. [facility], , 07/02/2024 10:00 PM
[2024-07-02 22:57] LABS: Appearance,Urine Clear (Clear); Bilirubin,Urine Negative (Negative); Blood,Urine Negative (Negative); Color,Urine Light Yellow; Glucose,Urine (UA) Negative (Negative); Ketones,Urine Negative (Negative); Leukocyte Esterase,Urine Negative (Negative); Nitrite,Urine Negative (Negative); PH, Urine 6.5 (5.0-8.0); Protein,Urine Negative (Negative); Specific Gravity,Urine 1.015 (1.001-1.035)
[2024-07-02 23:07] LABS: Amphetamine Screen,Urine Not Detected (NotDetected); Barbiturate Screen,Urine Not Detected (NotDetected); Benzodiazepines Screen,Urine Not Detected (NotDetected); Cocaine Screen,Urine Not Detected (NotDetected); Methadone Screen, Urine Not Detected (NotDetected); Opiate Screen,Urine Not Detected (NotDetected); Oxycodone Screen, Urine Not Detected (NotDetected); Phencyclidine Screen,Urine Not Detected (NotDetected); Tricyclic Antidepressant,Urine Not Detected (NotDetected); Urn Cannabinoid Scrn Not Detected (NotDetected)
--- NOTE | 2024-07-02 23:20 | ED ---
Seizure HPI - General Chief Complaint: Seizure Stated Complaint: Seizures Time Seen by Provider: 07/02/24 21:00 Source: patient Mode of arrival: ambulatory Limitations: no limitations - History of Present Illness Initial Comments: Patient is a 33-year-old man who is brought here to have evaluation of possible seizure. The patient states that his girlfriend woke him from sleep. She told him that he had been shaking. The patient does not have history of seizures. He did not have loss of continence. There was no reported postictal period the patient denies complaints himself and states that he feels well.. Complaint: possible seizure -: hour(s) Description of Episode: other (Shaking Episode) -: second(s) Witnessed: yes - by bystander Trauma: No Seizure History: none Place: home Possible Precipitating Event: none Associated Symptoms: denies other symptoms - Related Data Home Medications Medication Instructions Recorded Confirmed raNITIdine HCL [Zantac] 150 mg PO BID@,06/16/17 12/25/17 Atomoxetine HCl [Strattera] 100 mg PO DAILY@79912/25/17 12/25/17 LORazepam [Ativan] 0.5 mg PO TID@,12/25/17 12/25/17 Loratadine [Claritin] 10 mg PO DAILY@79912/25/17 12/25/17 Montelukast [Singulair] 10 mg PO HS@209912/25/17 12/25/17 Propranolol [Inderal] 20 mg PO TID@,,12/25/17 12/25/17 lamoTRIgine [LaMICtal] 200 mg PO DAILY@79912/25/17 12/25/17 risperiDONE [RisperDAL] 4 mg PO HS@209912/25/17 12/25/17 Previous Rx's Medication Instructions Recorded Ibuprofen [Motrin] 600 mg PO Q8HR PRN #24 tab 06/03/24 Allergies Allergy/AdvReac Type Severity Reaction Status Date / Time hazelnut Allergy Anaphylaxis Verified 07/02/24 20:56 naproxen Allergy Anaphylaxis Verified 07/02/24 20:56 oxycodone Allergy Confusion Verified 07/02/24 20:56 Penicillins Allergy Rash/Hives Verified 07/02/24 20:56 Sulfa (Sulfonamide Allergy Rash/Hives Verified 07/02/24 20:56 Antibiotics) Review of Systems ROS Statement: Those systems with pertinent positive or pertinent negative responses have been documented in the HPI. ROS Other: All systems not noted in ROS Statement are negative. Constitutional: Denies: fever, weakness Eyes: Denies: vision change Respiratory: Denies: cough, dyspnea Cardiovascular: Denies: chest pain, palpitations, orthopnea, syncope Gastrointestinal: Denies: abdominal pain, vomiting, diarrhea Genitourinary: Denies: dysuria, hematuria Musculoskeletal: Denies: back pain Skin: Denies: rash Neurological: Denies: headache, weakness, numbness, confusion Past Medical History Past Medical History: GERD/Reflux History of Any Multi-Drug Resistant Organisms: None Reported Additional Past Surgical History / Comment(s): Esophageal surgery, splenectomy 2018 Past Psychological History: ADD/ADHD, Bipolar, Depression Smoking Status: Current some day smoker, Vaper Past Alcohol Use History: Occasional Past Drug Use History: None Reported - Past Family History Father Family Medical History: Pulmonary Embolus Additional Family Medical History / Comment(s): Father is alive at age 60 with no major medical problems. Mother Additional Family Medical History / Comment(s): Patient does not know his mother but no she has an alcohol abuse problem and that she is alive. Brother(s) Additional Family Medical History / Comment(s): Patient has 1 brother that of SIDS. He also has 3 siblings which she does not know their medical history. General Exam Limitations: no limitations General appearance: alert, in no apparent distress Head exam: Present: atraumatic, normocephalic Eye exam: Present: normal appearance. Absent: scleral icterus, conjunctival injection ENT exam: Present: normal oropharynx Neck exam: Present: normal inspection Respiratory exam: Present: normal lung sounds bilaterally. Absent: respiratory distress, wheezes, rales, rhonchi, stridor, accessory muscle use Cardiovascular Exam: Present: regular rate, normal rhythm, normal heart sounds. Absent: systolic murmur, diastolic murmur, rubs, gallop GI/Abdominal exam: Present: soft. Absent: distended, tenderness, guarding, rebound, rigid Extremities exam: Present: normal inspection, normal capillary refill Back exam: Present: normal inspection. Absent: vertebral tenderness Neurological exam: Present: alert, oriented X3, CN II-XII intact. Absent: motor sensory deficit Skin exam: Present: warm, dry, intact, normal color. Absent: rash Course Vital Signs 07/02/24 20:53 Temperature 97.5 F L Pulse Rate 81 Respiratory 16 Rate Blood Pressure 126/87 O2 Sat by Pulse 98 Oximetry Medical Decision Making - Medical Decision Making The patient had CT scan of the brain that I interpreted as negative for acute bony injury. Negative for acute intracranial hemorrhage, mass affect or midline shift. Evaluation, the patient states he continues to feel well and wants to leave. D iscussed follow-up with the neurologist though at this point suspect that this was not true seizure activity. Discussed return parameters. - Lab Data Result diagrams: 07/02/24 21:20 07/02/24 21:20 Lab Results 07/02/24 07/02/24 07/02/24 Range/Units 21:20 21:20 22:25 WBC 8.3 (3.8-10.6) k/uL RBC 5.20 (4.30-5.90) m/uL Hgb 16.1 (13.0-17.5) gm/dL Hct 48.2 (39.0-53.0) % MCV 92.7 (80.0-100.0) fL MCH 30.9 (25.0-35.0) pg MCHC 33.3 (31.0-37.0) g/dL RDW 13.1 (11.5-15.5) % Plt Count 284 (150-450) k/uL MPV 8.3 Neutrophils % 52 % Lymphocytes % 34 % Monocytes % 7 % Eosinophils % 3 % Basophils % 1 % Neutrophils # 4.3 (1.3-7.7) k/uL Lymphocytes # 2.8 (1.0-4.8) k/uL Monocytes # 0.5 (0-1.0) k/uL Eosinophils # 0.3 (0-0.7) k/uL Basophils # 0.1 (0-0.2) k/uL Sodium 139 (137-145) mmol/L Potassium 4.4 (3.5-5.1) mmol/L Chloride 102 (98-107) mmol/L Carbon Dioxide 30 (22-30) mmol/L Anion Gap 7 mmol/L BUN 12 (9-20) mg/dL Creatinine 0.68 (0.66-1.25) mg/dL Est GFR (CKD-EPI)AfAm >90 (>60 ml/min/1.73 sqM) Est GFR (CKD-EPI)NonAf >90 (>60 ml/min/1.73 sqM) Glucose 105 H (74-99) mg/dL Calcium 9.7 (8.4-10.2) mg/dL Magnesium 1.9 (1.6-2.3) mg/dL Total Bilirubin 0.6 (0.2-1.3) mg/dL AST 27 (17-59) U/L ALT 23 (4-49) U/L Alkaline Phosphatase 117 (38-126) U/L Total Protein 7.4 (6.3-8.2) g/dL Albumin 4.5 (3.5-5.0) g/dL Urine Color Light Yellow Urine Appearance Clear (Clear) Urine pH 6.5 (5.0-8.0) Ur Specific [place] 1.015 (1.001-1.035) Urine Protein Negative (Negative) Urine Glucose (UA) Negative (Negative) Urine Ketones Negative (Negative) Urine Blood Negative (Negative) Urine Nitrite Negative (Negative) Urine Bilirubin Negative (Negative) Urine Urobilinogen 2.0 (<2.0) mg/dL Ur Leukocyte Esterase Negative (Negative) Urine Opiates Screen Not Detected (NotDetected) Ur Oxycodone Screen Not Detected (NotDetected) Urine Methadone Screen Not Detected (NotDetected) Ur Barbiturates Screen Not Detected (NotDetected) U Tricyclic Antidepress Not Detected (NotDetected) Ur Phencyclidine Scrn Not Detected (NotDetected) Ur Amphetamines Screen Not Detected (NotDetected) U Methamphetamines Scrn Not Detected (NotDetected) U Benzodiazepines Scrn Not Detected (NotDetected) Urine Cocaine Screen Not Detected (NotDetected) U Marijuana (THC) Screen Not Detected (NotDetected) Serum Alcohol <10 mg/dL Disposition Clinical Impression: Episode of shaking Disposition: HOME SELF-CARE Instructions (If sedation given, give patient instructions): Seizure/Epilepsy Discharge Instructions & Follow-Up Is patient prescribed a controlled substance at d/c from ED?: No Referrals: Nestor Granados [Primary Care Provider] - 1-2 days
[2024-07-02 23:22] VITALS: BP 137/93; PULSE 69; RESP 19; TEMP 98.4
== END 2024-07-02 23:25 | disposition home or self-care (01) ==
LOC: SUPCPDRO 19:48 → EC 19:48
DX: R56.9 Unspecified convulsions (principal); F17.290 Nicotine dependence, other tobacco product, uncomplicated; Z88.6 Allergy status to analgesic agent; Z88.2 Allergy status to sulfonamides; Z91.018 Allergy to other foods; Z88.8 Allergy status to other drugs, medicaments and biological substances
CPT/HCPCS: 36415; 93005; 80053; 83735; 85025; 81003; 80306; 70450; 99285; G0480; 80320

== ENCOUNTER 2024-07-07 23:24 | Emergency (ER) | payer MEDICARE ==
[2024-07-07 23:33] VITALS: BP 131/84; PULSE 83; RESP 20; TEMP 97.4
[2024-07-07 23:33] LABS: Glucose,Whole Blood 81 mg/dL (70-110)
--- NOTE | 2024-07-07 23:51 | ED ---
Recheck HPI - General Chief Complaint: Recheck/Abnormal Lab/Rx Stated Complaint: abn labs Source: patient, RN notes reviewed, old records reviewed Mode of arrival: ambulatory Limitations: no limitations - History of Present Illness Initial Comments: This is a 33-year-old male to the ER for evaluation today. Patient is well- known to our emergency department coming in for different reasons altered mental status psychiatric evaluation today thinks he might have low blood sugar concerned that he is not eating and has been living off a coffee diet for 3 days. Patient has no other complaints Blood sugar checked in triage is normal MD Complaint: abnormal lab (Low blood sugar) -: days(s) Symptoms Since Prior Visit: no new symptoms Associated Symptoms: none Treatments Prior to Arrival: other (0) - Related Data Home Medications Medication Instructions Recorded Confirmed raNITIdine HCL [Zantac] 150 mg PO BID@,06/16/17 12/25/17 Atomoxetine HCl [Strattera] 100 mg PO DAILY@79912/25/17 12/25/17 LORazepam [Ativan] 0.5 mg PO TID@,12/25/17 12/25/17 Loratadine [Claritin] 10 mg PO DAILY@79912/25/17 12/25/17 Montelukast [Singulair] 10 mg PO HS@209912/25/17 12/25/17 Propranolol [Inderal] 20 mg PO TID@,,12/25/17 12/25/17 lamoTRIgine [LaMICtal] 200 mg PO DAILY@79912/25/17 12/25/17 risperiDONE [RisperDAL] 4 mg PO HS@209912/25/17 12/25/17 Previous Rx's Medication Instructions Recorded Ibuprofen [Motrin] 600 mg PO Q8HR PRN #24 tab 06/03/24 Allergies Allergy/AdvReac Type Severity Reaction Status Date / Time hazelnut Allergy Anaphylaxis Verified 07/07/24 23:33 naproxen Allergy Anaphylaxis Verified 07/07/24 23:33 oxycodone Allergy Confusion Verified 07/07/24 23:33 Penicillins Allergy Rash/Hives Verified 07/07/24 23:33 Sulfa (Sulfonamide Allergy Rash/Hives Verified 07/07/24 23:33 Antibiotics) Review of Systems ROS Statement: Those systems with pertinent positive or pertinent negative responses have been documented in the HPI. ROS Other: All systems not noted in ROS Statement are negative. Past Medical History Past Medical History: GERD/Reflux History of Any Multi-Drug Resistant Organisms: None Reported Additional Past Surgical History / Comment(s): Esophageal surgery, splenectomy 2018 Past Psychological History: ADD/ADHD, Bipolar, Depression Smoking Status: Current some day smoker, Vaper Past Alcohol Use History: Occasional Past Drug Use History: None Reported - Past Family History Father Family Medical History: Pulmonary Embolus Additional Family Medical History / Comment(s): Father is alive at age 60 with no major medical problems. Mother Additional Family Medical History / Comment(s): Patient does not know his mother but no she has an alcohol abuse problem and that she is alive. Brother(s) Additional Family Medical History / Comment(s): Patient has 1 brother that of SIDS. He also has 3 siblings which she does not know their medical history. General Exam Limitations: no limitations General appearance: alert, in no apparent distress Head exam: Present: atraumatic, normocephalic, normal inspection Eye exam: Present: normal appearance, PERRL, EOMI. Absent: scleral icterus, conjunctival injection, periorbital swelling ENT exam: Present: normal exam, mucous membranes moist Neck exam: Present: normal inspection. Absent: tenderness, meningismus, lymphadenopathy Respiratory exam: Present: normal lung sounds bilaterally. Absent: respiratory distress, wheezes, rales, rhonchi, stridor Cardiovascular Exam: Present: regular rate, normal rhythm, normal heart sounds. Absent: systolic murmur, diastolic murmur, rubs, gallop, clicks GI/Abdominal exam: Present: soft, normal bowel sounds. Absent: distended, tende rness, guarding, rebound, rigid Extremities exam: Present: normal inspection, full ROM, normal capillary refill. Absent: tenderness, pedal edema, joint swelling, calf tenderness Back exam: Present: normal inspection Neurological exam: Present: alert, oriented X3, CN II-XII intact Psychiatric exam: Present: normal affect, normal mood Skin exam: Present: warm, dry, intact, normal color. Absent: rash Course Vital Signs 07/07/24 23:30 Temperature 97.4 F L Pulse Rate 83 Respiratory 20 Rate Blood Pressure 131/84 O2 Sat by Pulse 97 Oximetry - Reevaluation(s) Reevaluation #1: 07/08/24 00:31 Medical records reviewed Reevaluation #2: 07/08/24 00:31 Patient feeling better after giving food here in the ER Reevaluation #3: 07/08/24 00:31 Patient informed of results questions answered Reevaluation #4: Was pt. sent in by a medical professional or institution (, ADIN, AIRFIELD DEFENCE GUARD, urgent care, hospital, or retirement...) When possible be specific @ -no Did you speak to anyone other than the patient for history (EMS, parent, family, police, friend...)? What history was obtained from this source @ -no Did you review nursing and triage notes (agree or disagree)? Why? @ -agree Are old charts reviewed (outside hosp., previous admission, EMS record, old EKG, old radiological studies, urgent care reports/EKG's, retirement records)? Report findings @ -yes Differential Diagnosis (chest pain, altered mental status, abdominal pain women, abdominal pain men, vaginal bleeding, weakness, fever, dyspnea, syncope, headache, dizziness, GI bleed, back pain, seizure, CVA, palpatations, mental health, musculoskeletal)? @ -prior EKG interpreted by me (3pts min.). @ -yes X-rays interpreted by me (1pt min.). @ -yes negative for acute disease CT interpreted by me (1pt min.). @ -no U/S interpreted by me (1pt. min.). @ -no What testing was considered but not performed or refused? (CT, X-rays, U/S, labs)? Why? @ -none What meds were considered but not given or refused? Why? @ -none Did you discuss the management of the patient with other professionals (professionals i.e. , ADIN, AIRFIELD DEFENCE GUARD, lab, RT, psych nurse, social work lecturer, quarter inspector, teacher, human resources officer, case sealer)? Give summary @ -no Was smoking cessation discussed for >3mins.? @ -no Was critical care preformed (if so, how long)? @ -no Were there social determinants of health that impacted care today? How? (Homelessness, low income, unemployed, alcoholism, drug addiction, transportation, low edu. Level, literacy, decrease access to med. care, half-way, rehab)? @ -none Was there de-escalation of care discussed even if they declined (Discuss DNR or withdrawal of care, Hospice)? DNR status @ -no What co-morbidities impacted this encounter? (DM, HTN, Smoking, COPD, CAD, Cancer, CVA, ARF, Chemo, Hep., AIDS, mental health diagnosis, sleep apnea, morbid obesity)? @ -none Was patient admitted / discharged? Hospital course, mention meds given and route, prescriptions, significant lab abnormalities, going to OR and other pertinent info. @ - Undiagnosed new problem with uncertain prognosis? @ -no Drug Therapy requiring intensive monitoring for toxicity (Heparin, Nitro, Insulin, Cardizem)? @ -no Were any procedures done? @ -no Diagnosis/symptom? @ - Acute, or Chronic, or Acute on Chronic? @ -Acute Uncomplicated (without systemic symptoms) or Complicated (systemic symptoms)? @ -Complicated Side effects of treatment? @ -no Exacerbation, Progression, or Severe Exacerbation? @ -exacerbation Poses a threat to life or bodily function? How? (Chest pain, USA, RI, pneumonia, PE, COPD, DKA, ARF, appy, cholecystitis, CVA, Diverticulitis, Homicidal, Suicidal, threat to staff... and all critical care pts) @ -yes Medical Decision Making - Medical Decision Making 33 male concern for low blood sugars without hypoglycemia here in the hospital patient is given something to eat and can be discharged home - Lab Data Lab Results 07/07/24 Range/Units 23:29 POC Glucose (mg/dL) 81 (70-110) mg/dL POC Glu Search Marketing Analyst ID Que Reyes Disposition Clinical Impression: Normal exam Disposition: HOME SELF-CARE Condition: Fair Instructions (If sedation given, give patient instructions): Normal Exam (ED) Is patient prescribed a controlled substance at d/c from ED?: No Referrals: Nestor Granados [Primary Care Provider] - 1-2 days Time of Disposition: 23:00
== END 2024-07-08 | disposition home or self-care (01) ==
LOC: EC 23:24
DX: Z00.8 Encounter for other general examination (principal); F17.290 Nicotine dependence, other tobacco product, uncomplicated; Z88.0 Allergy status to penicillin; Z88.1 Allergy status to other antibiotic agents; Z88.2 Allergy status to sulfonamides; Z88.5 Allergy status to narcotic agent
CPT/HCPCS: 36415; 99283

== ENCOUNTER 2024-07-17 07:20 | Emergency (ER) | payer MEDICARE ==
[2024-07-17 07:25] VITALS: RESP 18; TEMP 97.8
--- NOTE | 2024-07-17 08:21 | ED ---
General Adult HPI - General Chief complaint: Headache Stated complaint: headache Time Seen by Provider: 07/17/24 07:22 Source: patient, EMS, RN notes reviewed, old records reviewed Mode of arrival: EMS Limitations: no limitations - History of Present Illness Initial comments: 33 old male presenting for evaluation of headache. Patient had seizure yester day evening according to his girlfriend who is at bedside. He had struck his head on a nightstand during the seizure. Presenting approximately 12 hours later for evaluation of persistent headache. No focal numbness or weakness. No further seizure activity. Patient does have history of recurrent seizure. - Related Data Home Medications Medication Instructions Recorded Confirmed raNITIdine HCL [Zantac] 150 mg PO BID@,06/16/17 12/25/17 Atomoxetine HCl [Strattera] 100 mg PO DAILY@79912/25/17 12/25/17 LORazepam [Ativan] 0.5 mg PO TID@,,12/25/17 12/25/17 Loratadine [Claritin] 10 mg PO DAILY@79912/25/17 12/25/17 Montelukast [Singulair] 10 mg PO HS@209912/25/17 12/25/17 Propranolol [Inderal] 20 mg PO TID@,,12/25/17 12/25/17 lamoTRIgine [LaMICtal] 200 mg PO DAILY@79912/25/17 12/25/17 risperiDONE [RisperDAL] 4 mg PO HS@209912/25/17 12/25/17 Previous Rx's Medication Instructions Recorded Ibuprofen [Motrin] 600 mg PO Q8HR PRN #24 tab 06/03/24 Allergies Allergy/AdvReac Type Severity Reaction Status Date / Time hazelnut Allergy Anaphylaxis Verified 07/07/24 23:33 naproxen Allergy Anaphylaxis Verified 07/07/24 23:33 oxycodone Allergy Confusion Verified 07/07/24 23:33 Penicillins Allergy Rash/Hives Verified 07/07/24 23:33 Sulfa (Sulfonamide Allergy Rash/Hives Verified 07/07/24 23:33 Antibiotics) Review of Systems ROS Statement: Those systems with pertinent positive or pertinent negative responses have been documented in the HPI. ROS Other: All systems not noted in ROS Statement are negative. Past Medical History Past Medical History: GERD/Reflux, Seizure Disorder History of Any Multi-Drug Resistant Organisms: None Reported Additional Past Surgical History / Comment(s): Esophageal surgery, splenectomy 2018 Past Psychological History: ADD/ADHD, Bipolar, Depression Smoking Status: Current some day smoker, Vaper Past Alcohol Use History: Occasional Past Drug Use History: None Reported - Past Family History Father Family Medical History: Pulmonary Embolus Additional Family Medical History / Comment(s): Father is alive at age 60 with no major medical problems. Mother Additional Family Medical History / Comment(s): Patient does not know his mother but no she has an alcohol abuse problem and that she is alive. Brother(s) Additional Family Medical History / Comment(s): Patient has 1 brother that of SIDS. He also has 3 siblings which she does not know their medical history. General Exam Limitations: no limitations General appearance: alert, in no apparent distress Head exam: Present: atraumatic, normocephalic Eye exam: Present: normal appearance, PERRL ENT exam: Present: normal exam Neck exam: Present: normal inspection. Absent: meningismus Respiratory exam: Present: normal lung sounds bilaterally. Absent: respiratory distress, wheezes Cardiovascular Exam: Present: regular rate, normal rhythm GI/Abdominal exam: Present: soft. Absent: distended, tenderness, guarding Extremities exam: Present: normal inspection, normal capillary refill Neurological exam: Present: alert, oriented X3, CN II-XII intact. Absent: motor sensory deficit Psychiatric exam: Present: normal affect, normal mood Skin exam: Present: warm, dry, intact Course Vital Signs 07/17/24 07:21 Temperature 97.8 F Pulse Rate 98 Respiratory 18 Rate Blood Pressure 135/80 O2 Sat by Pulse 98 Oximetry Medical Decision Making - Medical Decision Making Was pt. sent in by a medical professional or institution (, PA, TABLE GAMES SUPERVISOR, urgent care, hospital, or shelter...) When possible be specific @ -No Did you speak to anyone other than the patient for history (EMS, parent, family, police, friend...)? What history was obtained from this source @ -No Did you review nursing and triage notes (agree or disagree)? Why? @ -I reviewed and agree with nursing and triage notes Were old charts reviewed (outside hosp., previous admission, EMS record, old EKG, old radiological studies, urgent care reports/EKG's, shelter records)? Report findings @ -No old charts were reviewed Differential Diagnosis: Intracranial hemorrhage, concussion, subarachnoid hemorrhage, seizure EKG interpreted by me (3pts min.). @ -As above X-rays interpreted by me (1pt min.). @ -None done CT interpreted by me (1pt min.). @CT brain negative for intracranial hemorrhage or mass effect, no acute findings. U/S interpreted by me (1pt. min.). @ -None done What testing was considered but not performed or refused? (CT, X-rays, U/S, labs)? Why? @ -None What meds were considered but not given or refused? Why? @ -None Did you discuss the management of the patient with other professionals (professionals i.e. , PA, TABLE GAMES SUPERVISOR, lab, RT, psych nurse, manager social media, real estate clerk, teacher, chief sustainability officer, therapeutic case manager)? Give summary @ -No Was smoking cessation discussed for >3mins.? @ -No Was critical care preformed (if so, how long)? @ -No Were there social determinants of health that impacted care today? How? (Homelessness, low income, unemployed, alcoholism, drug addiction, tr ansportation, low edu. Level, literacy, decrease access to med. care, group home, rehab)? @ -No Was there de-escalation of care discussed even if they declined (Discuss DNR or withdrawal of care, Hospice)? DNR status @ -No What co-morbidities impacted this encounter? (DM, HTN, Smoking, COPD, CAD, Cancer, CVA, ARF, Chemo, Hep., AIDS, mental health diagnosis, sleep apnea, morbid obesity)? @ Patient has history of seizure disorder Was patient admitted / discharged? Hospital course, mention meds given and route, prescriptions, significant lab abnormalities, going to OR and other pertinent info. @ -[33 male presenting for evaluation of headache after seizure with head injury. Head CT is negative for intracranial hemorrhage or mass effect. Patient well-appearing with stable vitals. No other complaints. Patient stable for discharge. Undiagnosed new problem with uncertain prognosis? @ -No Drug Therapy requiring intensive monitoring for toxicity (Heparin, Nitro, Insulin, Cardizem)? @ -No Were any procedures done? @ -No Diagnosis/symptom? @ -Concussion, recurrent seizure Acute, or Chronic, or Acute on Chronic? @Acute Uncomplicated (without systemic symptoms) or Complicated (systemic symptoms)? @ -Default Side effects of treatment? @ -No Exacerbation, Progression, or Severe Exacerbation? @ -No Poses a threat to life or bodily function? How? (Chest pain, USA, RI, pneumonia, PE, COPD, DKA, ARF, appy, cholecystitis, CVA, Diverticulitis, Homicidal, Suicidal, threat to staff... and all critical care pts) @ -No Disposition Clinical Impression: Cognitive impairment, Concussion Disposition: HOME SELF-CARE Condition: Fair Instructions (If sedation given, give patient instructions): Acute Headache (ED) Is patient prescribed a controlled substance at d/c from ED?: No Referrals: Nestor Granados [Primary Care Provider] - 1-2 days Time of Disposition: 08:21
--- NOTE | 2024-07-17 08:36 | CT ---
EXAMINATION TYPE: CT brain wo con DATE OF EXAM: 07/17/2024 8:16 AM COMPARISON: None. CLINICAL INDICATION: Male, 33 years old with history of seizure/MARSH, Seizure/headache TECHNIQUE: CT of the brain is performed utilizing 3 mm thick sections through the posterior fossa and 3 mm thick sections through the remaining calvarium. Study is performed within 24 hours of arrival to the hospital. Contrast used: mL of , (none if empty) CT DLP: 1141.1 mGycm, Automated exposure control for dose reduction was used. FINDINGS: No abnormal hyperdensity is present to suggest an acute intracranial hemorrhage. No mass lesion is evident. No acute infarcts are evident. Ventricles and sulci are appropriate for the patient age. Paranasal sinuses and mastoid air cells within the [id number] are clear. Septal deviation to the r ight is evident IMPRESSION: 1. No acute intracranial process. Follow up MRI can be performed as clinically indicated. [facility], , 07/17/2024 8:34 AM
[2024-07-17 08:47] VITALS: BP 118/78; PULSE 82
== END 2024-07-17 08:45 | disposition home or self-care (01) ==
LOC: EC 07:20
DX: S06.0X0A Concussion without loss of consciousness, initial encounter (principal); G40.909 Epilepsy, unspecified, not intractable, without status epilepticus; R40.2410 Glasgow coma scale score 13-15, unspecified time; F17.290 Nicotine dependence, other tobacco product, uncomplicated; Z88.2 Allergy status to sulfonamides; Z88.5 Allergy status to narcotic agent; Z88.0 Allergy status to penicillin; Z88.1 Allergy status to other antibiotic agents; Z91.018 Allergy to other foods; W22.8XXA Striking against or struck by other objects, initial encounter
CPT/HCPCS: 70450; 99284

== ENCOUNTER 2024-08-13 21:58 | Emergency (ER) | payer MEDICARE ==
[2024-08-13 22:22] VITALS: TEMP 97.8
--- NOTE | 2024-08-13 23:51 | ED ---
General Adult HPI - General Chief complaint: Upper Respiratory Infection Stated complaint: Black mold exposure Time Seen by Provider: 08/13/24 22:14 Source: patient, RN notes reviewed Mode of arrival: ambulatory Limitations: no limitations - History of Present Illness Initial comments: This is a well-known 33-year-old male with history of epilepsy and GERD presenting for black mold exposure. Patient states he spent 7 weeks at a [facility] where black mold was discovered and also discovered black mold in the recently moved in apartment for the past 3 weeks. Endorses fatigue for the past 2 days. Denies fever, chills, cough, hemoptysis, dyspnea, chest pain, abdominal pain, N/V/D. Onset/Timin -: days(s) Associated Symptoms: malaise Treatments Prior to Arrival: none - Related Data Home Medications Medication Instructions Recorded Confirmed raNITIdine HCL [Zantac] 150 mg PO BID@,06/16/17 12/25/17 Atomoxetine HCl [Strattera] 100 mg PO DAILY@79912/25/17 12/25/17 LORazepam [Ativan] 0.5 mg PO TID@,12/25/17 12/25/17 Loratadine [Claritin] 10 mg PO DAILY@79912/25/17 12/25/17 Montelukast [Singulair] 10 mg PO HS@209912/25/17 12/25/17 Propranolol [Inderal] 20 mg PO TID@,,12/25/17 12/25/17 lamoTRIgine [LaMICtal] 200 mg PO DAILY@79912/25/17 12/25/17 risperiDONE [RisperDAL] 4 mg PO HS@209912/25/17 12/25/17 Previous Rx's Medication Instructions Recorded Ibuprofen [Motrin] 600 mg PO Q8HR PRN #24 tab 06/03/24 Allergies Allergy/AdvReac Type Severity Reaction Status Date / Time hazelnut Allergy Anaphylaxis Verified 08/13/24 22:19 naproxen Allergy Anaphylaxis Verified 08/13/24 22:19 oxycodone Allergy Confusion Verified 08/13/24 22:19 Penicillins Allergy Rash/Hives Verified 08/13/24 22:19 Sulfa (Sulfonamide Allergy Rash/Hives Verified 05/07/25 22:19 Antibiotics) Review of Systems ROS Statement: Those systems with pertinent positive or pertinent negative responses have been documented in the HPI. ROS Other: All systems not noted in ROS Statement are negative. Past Medical History Past Medical History: GERD/Reflux, Seizure Disorder History of Any Multi-Drug Resistant Organisms: None Reported Additional Past Surgical History / Comment(s): Esophageal surgery, splenectomy 2018 Past Psychological History: ADD/ADHD, Bipolar, Depression Smoking Status: Current some day smoker, Vaper Past Alcohol Use History: Occasional Past Drug Use History: None Reported - Past Family History Father Family Medical History: Pulmonary Embolus Additional Family Medical History / Comment(s): Father is alive at age 60 with no major medical problems. Mother Additional Family Medical History / Comment(s): Patient does not know his mother but no she has an alcohol abuse problem and that she is alive. Brother(s) Additional Family Medical History / Comment(s): Patient has 1 brother that of SIDS. He also has 3 siblings which she does not know their medical history. General Exam Limitations: no limitations General appearance: alert, in no apparent distress Head exam: Present: atraumatic, normocephalic, normal inspection Eye exam: Present: normal appearance, PERRL, EOMI. Absent: scleral icterus, conjunctival injection, periorbital swelling ENT exam: Present: normal exam, mucous membranes moist Neck exam: Present: normal inspection. Absent: tenderness, meningismus, lymphadenopathy Respiratory exam: Present: normal lung sounds bilaterally. Absent: respiratory distress, wheezes, rales, rhonchi, stridor, accessory muscle use, decreased breath sounds, prolonged expiratory Cardiovascular Exam: Present: regular rate, normal rhythm, normal heart sounds. Absent: systolic murmur, diastolic murmur, rubs, gallop, clicks GI/Abdominal exam: Present: soft, normal bowel sounds. Absent: distended, tenderness, guarding, rebound, rigid Extremities exam: Present: normal inspection, full ROM, normal capillary refill. Absent: tenderness, pedal edema, joint swelling, calf tenderness Back exam: Present: normal inspection Neurological exam: Present: alert, oriented X3, CN II-XII intact Psychiatric exam: Present: normal affect, normal mood Skin exam: Present: warm, dry, intact, normal color. Absent: rash Course Vital Signs 08/13/24 08/14/24 22:19 00:26 Temperature 97.8 F 97.8 F Pulse Rate 62 70 Respiratory 18 19 Rate Blood Pressure 139/78 131/79 O2 Sat by Pulse 99 98 Oximetry Medical Decision Making - Medical Decision Making Was pt. sent in by a medical professional or institution (, ADIN, QUALITY ASSURANCE LAB TECHNICIAN, urgent care, hospital, or detention...) When possible be specific @ -No Did you speak to anyone other than the patient for history (EMS, parent, family, police, friend...)? What history was obtained from this source @ -No Did you review nursing and triage notes (agree or disagree)? Why? @ -I reviewed and agree with nursing and triage notes Were old charts reviewed (outside hosp., previous admission, EMS record, old EKG, old radiological studies, urgent care reports/EKG's, detention records)? Report findings @ -No old charts were reviewed Differential Diagnosis (chest pain, altered mental status, abdominal pain women, abdominal pain men, vaginal bleeding, weakness, fever, dyspnea, syncope, headache, dizziness, GI bleed, back pain, seizure, CVA, palpatations, mental health, musculoskeletal)? @ -Differential Dyspnea: Coronary syndrome, arrhythmia, tamponade, asthma, COPD, pulmonary embolism, pneumonia, pneumothorax, pulmonary effusion, anaphylaxis, diabetic ketoacidosis, flailed chest, pulmonary contusion, diaphragmatic rupture, anemia, neuromuscular, this is not meant to be an all-inclusive list. EKG interpreted by me (3pts min.). @ -Not done X-rays interpreted by me (1pt min.). @ -CXR shows no acute cardiopulmonary process with gas-distended esophagus and moderate hiatal hernia with mild adjacent atelectasis mild hyperinflation of the lungs similar to prior imaging. No focal consolidation noted. CT interpreted by me (1pt min.). @ -None done U/S interpreted by me (1pt. min.). @ -None done What testing was considered but not performed or refused? (CT, X-rays, U/S, labs)? Why? @ -None What meds were considered but not given or refused? Why? @ -None Did you discuss the management of the patient with other professionals (professionals i.e. , ADIN, QUALITY ASSURANCE LAB TECHNICIAN, lab, RT, psych nurse, social sciences lecturer, cocoa butter filter operator, teacher, learning and development officer, rn field case manager)? Give summary @ -No Was smoking cessation discussed for >3mins.? @ -No Was critical care preformed (if so, how long)? @ -No Were there social determinants of health that impacted care today? How? (Homelessness, low income, unemployed, alcoholism, drug addiction, transportation, low edu. Level, literacy, decrease access to med. care, detention, rehab)? @ -No Was there de-escalation of care discussed even if they declined (Discuss DNR or withdrawal of care, Hospice)? DNR status @ -No What co-morbidities impacted this encounter? (DM, HTN, Smoking, COPD, CAD, Cancer, CVA, ARF, Chemo, Hep., AIDS, mental health diagnosis, sleep apnea, morbid obesity)? @ -None Was patient admitted / discharged? Hospital course, mention meds given and route, prescriptions, significant lab abnormalities, going to OR and other pertinent info. @ -CXR shows no acute cardiopulmonary process with gas-distended esophagus and moderate hiatal hernia with mild adjacent atelectasis mild hyperinflation of the lungs similar to prior imaging. No focal consolidation noted. Patient respirations 19 and 90% room air pulse oximeter. Lung sounds CTA in all [place]. Denies contact professional to the department of black mold to avoid further exposure. Discussed patient with Dr. Delgado. Undiagnosed new problem with uncertain prognosis? @ -No Drug Therapy requiring intensive monitoring for toxicity (Heparin, Nitro, Insulin, Cardizem)? @ -No Were any procedures done? @ -No Diagnosis/symptom? @ -Black mold exposure Acute, or Chronic, or Acute on Chronic? @ -Acute Uncomplicated (without systemic symptoms) or Complicated (systemic symptoms)? @ -Uncomplicated Side effects of treatment? @ -No Exacerbation, Progression, or Severe Exacerbation? @ -No Poses a threat to life or bodily function? How? (Chest pain, USA, [place], pneumonia, PE, COPD, DKA, ARF, appy, cholecystitis, CVA, Diverticulitis, Homicidal, Suicidal, threat to staff... and all critical care pts) @ -No Disposition Clinical Impression: Mold exposure Disposition: HOME SELF-CARE Condition: Good Instructions (If sedation given, give patient instructions): How Your Lungs Work (ED) Additional Instructions: Contact professional to clear apartment of black mold. Follow-up with primary care for any ongoing worsening symptoms. Is patient prescribed a controlled substance at d/c from ED?: No Referrals: None,Stated [Primary Care Provider] - 1-2 days Anthony Wilcox DO [STAFF PHYSICIAN] - 1-2 days Time of Disposition: 23:51
[2024-08-14 00:27] VITALS: BP 131/79; PULSE 70; RESP 19
--- NOTE | 2024-08-14 01:30 | XR ---
EXAM: XR Chest, 2 Views CLINICAL HISTORY: ITS.REASON XR Reason: Black mold exposure TECHNIQUE: Frontal and lateral views of the chest. COMPARISON: No relevant prior studies available. FINDINGS: Lungs: See below. No focal consolidation. Mild hyperinflation of the lungs. Pleural space: Unremarkable. No pneumothorax. Heart: Unremarkable. No cardiomegaly. Mediastinum: Gas distended esophagus and moderate hiatal hernia, similar to the prior. Mild adjacent atelectasis. Bones/joints: Unremarkable. No acute fracture. IMPRESSION: 1. No evidence of acute cardiopulmonary disease 2. Gas distended esophagus and moderate hiatal hernia, similar to the prior. Mild adjacent atelectasis. 3. Mild hyperinflation of the lungs.
== END 2024-08-14 00:48 | disposition home or self-care (01) ==
LOC: EC 21:58
DX: F17.290 Nicotine dependence, other tobacco product, uncomplicated (principal); Z77.120 Contact with and (suspected) exposure to mold (toxic); Z88.6 Allergy status to analgesic agent; Z88.8 Allergy status to other drugs, medicaments and biological substances; Z88.2 Allergy status to sulfonamides; Z91.018 Allergy to other foods
CPT/HCPCS: 71046; 99283

== ENCOUNTER 2024-10-10 19:58 | Emergency (ER) | payer MEDICARE, OTHER ==
--- NOTE | 2024-10-10 20:51 | XR ---
EXAMINATION TYPE: XR hand complete LT DATE OF EXAM: 10/10/2024 8:42 PM INDICATION: Patient age:Male; 34 years old; Reason for study: pain; PHH. pain COMPARISON: Left wrist radiograph 08/23/2023 TECHNIQUE: Frontal, lateral and oblique views of the left hand were obtained. FINDINGS: Normal alignment of the visualized joints. No acute osseous pathology is identified. No os seous erosions. No evidence of soft tissue swelling. No radiopaque foreign body. IMPRESSION: No acute osseous pathology. [facility], , 10/10/2024 8:48 PM
--- NOTE | 2024-10-10 20:52 | XR ---
EXAMINATION TYPE: XR toes LT DATE OF EXAM: 10/10/2024 8:43 PM INDICATION: Patient age:Male; 34 years old; Reason for study: pain; PHH. pain COMPARISON: None TECHNIQUE: The toes of the left foot were examined in the AP, oblique, and lateral projections. FINDINGS: The first and second toes with partial third toe of the left foot were visualized. No evidence of any acute osseous pathology. No osseous erosions. No evidence of soft tissue swelling. Joints are preser malena. No radiopaque foreign body. IMPRESSION: No evidence of acute fracture. [facility], , 10/10/2024 8:50 PM
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
[2024-10-10 21:20] VITALS: BP 126/72; PULSE 70; RESP 16; TEMP 98.1
== END 2024-10-10 21:39 | disposition home or self-care (01) ==
LOC: EC 19:58
DX: S93.502A Unspecified sprain of left great toe, initial encounter (principal); L03.032 Cellulitis of left toe; F17.290 Nicotine dependence, other tobacco product, uncomplicated; Z88.0 Allergy status to penicillin; Z88.1 Allergy status to other antibiotic agents; Z88.2 Allergy status to sulfonamides; Z88.5 Allergy status to narcotic agent; Z88.6 Allergy status to analgesic agent; Z91.018 Allergy to other foods; W03.XXXA Other fall on same level due to collision with another person, initial encounter
CPT/HCPCS: 99283

== ENCOUNTER 2024-10-14 16:52 | Emergency (ER) | payer MEDICARE, OTHER ==
[2024-10-14 17:18] VITALS: RESP 16
--- NOTE | 2024-10-14 18:12 | ED ---
Extremity Problem HPI - General Chief complaint: Wound/Laceration Stated complaint: left great toe laceration pain Time Seen by Provider: 10/14/24 18:04 Source: patient, RN notes reviewed, old records reviewed Mode of arrival: ambulatory Limitations: no limitations - History of Present Illness Initial comments: This is a 34-year-old male presenting with left great toe pain. Patient unsure of cause of pain. Unsure if he is injury but concern for redness and swelling. Patient does have mild ulceration minimal bleeding and some redness in the toe and foot. Painful to walk on no fevers no history of significant infection MD Complaint: extremity pain, extremity swelling -: days(s) Location: left, toe Radiation: none Quality: aching Consistency: constant Improves with: nothing Worsens with: weight bearing Associated Symptoms: denies other symptoms - Related Data Home Medications Medication Instructions Recorded Confirmed raNITIdine HCL [Zantac] 150 mg PO BID@,06/16/17 12/25/17 Atomoxetine HCl [Strattera] 100 mg PO DAILY@79912/25/17 12/25/17 LORazepam [Ativan] 0.5 mg PO TID@,,12/25/17 12/25/17 Loratadine [Claritin] 10 mg PO DAILY@79912/25/17 12/25/17 Montelukast [Singulair] 10 mg PO HS@209912/25/17 12/25/17 Propranolol [Inderal] 20 mg PO TID@,,12/25/17 12/25/17 lamoTRIgine [LaMICtal] 200 mg PO DAILY@79912/25/17 12/25/17 risperiDONE [RisperDAL] 4 mg PO HS@209912/25/17 12/25/17 Previous Rx's Medication Instructions Recorded Ibuprofen [Motrin] 600 mg PO Q8HR PRN #24 tab 06/03/24 Cephalexin [Keflex] 500 mg PO Q6HR 7 Days #28 cap 10/10/24 Cephalexin [Keflex] 500 mg PO TID #21 cap 10/14/24 Allergies Allergy/AdvReac Type Severity Reaction Status Date / Time hazelnut Allergy Anaphylaxis Verified 10/10/24 20:02 naproxen Allergy Anaphylaxis Verified 10/10/24 20:02 oxycodone Allergy Confusion Verified 10/10/24 20:02 Penicillins Allergy Rash/Hives Verified 10/10/24 20:02 Sulfa (Sulfonamide Allergy Rash/Hives Verified 10/10/24 20:02 Antibiotics) Review of Systems ROS Statement: Those systems with pertinent positive or pertinent negative responses have been documented in the HPI. ROS Other: All systems not noted in ROS Statement are negative. Past Medical History Past Medical History: GERD/Reflux, Seizure Disorder History of Any Multi-Drug Resistant Organisms: None Reported Additional Past Surgical History / Comment(s): Esophageal surgery, splenectomy 2018 Past Psychological History: ADD/ADHD, Bipolar, Depression Smoking Status: Current some day smoker, Vaper Past Alcohol Use History: Occasional Past Drug Use History: None Reported - Past Family History Father Family Medical History: Pulmonary Embolus Additional Family Medical History / Comment(s): Father is alive at age 60 with no major medical problems. Mother Additional Family Medical History / Comment(s): Patient does not know his mother but no she has an alcohol abuse problem and that she is alive. Brother(s) Additional Family Medical History / Comment(s): Patient has 1 brother that of SIDS. He also has 3 siblings which she does not know their medical history. General Exam Limitations: no limitations General appearance: alert, in no apparent distress Head exam: Present: atraumatic, normocephalic, normal inspection Eye exam: Present: normal appearance, PERRL, EOMI. Absent: scleral icterus, conjunctival injection, periorbital swelling ENT exam: Present: normal exam, mucous membranes moist Neck exam: Present: normal inspection. Absent: tenderness, meningismus, lymphadenopathy Respiratory exam: Present: normal lung sounds bilaterally. Absent: respiratory distress, wheezes, rales, rhonchi, stridor Cardiovascular Exam: Present: regular rate, normal rhythm, normal heart sounds. Absent: systolic murmur, diastolic murmur, rubs, gallop, clicks GI/Abdominal exam: Present: soft, normal bowel sounds. Absent: distended, tenderness, guarding, rebound, rigid Extremities exam: Present: normal inspection, full ROM, normal capillary refill. Absent: tenderness, pedal edema, joint swelling, calf tenderness Back exam: Present: normal inspection Neurological exam: Present: alert, oriented X3, CN II-XII intact Psychiatric exam: Present: normal affect, normal mood Skin exam: Present: warm, dry, intact, normal color. Absent: rash Course Vital Signs 10/14/24 10/14/24 17:16 20:01 Temperature 98.2 F 98.4 F Pulse Rate 93 78 Respiratory 16 16 Rate Blood Pressure 129/71 139/83 O2 Sat by Pulse 99 98 Oximetry - Reevaluation(s) Reevaluation #1: Medical records reviewed Reevaluation #2: Patient's symptoms improved Reevaluation #3: Patient informed of results questions answered Reevaluation #4: Was pt. sent in by a medical professional or institution (, [facility], [facility], urgent care, hospital, or [facility]...) When possible be specific @ -no Did you speak to anyone other than the patient for history (EMS, parent, family, police, friend...)? What history was obtained from this source @ -no Did you review nursing and triage notes (agree or disagree)? Why? @ -agree Are old charts reviewed (outside hosp., previous admission, EMS record, old EKG, old radiological studies, urgent care reports/EKG's, [facility] records)? Report findings @ -yes Differential Diagnosis (chest pain, altered mental status, abdominal pain women, abdominal pain men, vaginal bleeding, weakness, fever, dyspnea, syncope, headache, dizziness, GI bleed, back pain, seizure, CVA, palpatations, mental health, musculoskeletal)? @ -prior EKG interpreted by me (3pts min.). @ -no X-rays interpreted by me (1pt min.). @ -yes negative for acute disease CT interpreted by me (1pt min.). @ -no U/S interpreted by me (1pt. min.). @ -no What testing was considered but not performed or refused? (CT, X-rays, U/S, labs)? Why? @ -none What meds were considered but not given or refused? Why? @ -none Did you discuss the management of the patient with other professionals (professionals i.e. [facility], [facility], lab, RT, psych nurse, perinatal social worker, real estate lawyer, teacher, stream control officer, case filler)? Give summary @ -no Was smoking cessation discussed for >3mins.? @ -no Was critical care preformed (if so, how long)? @ -no Were there social determinants of health that impacted care today? How? (Homelessness, low income, unemployed, alcoholism, drug addiction, transportation, low edu. Level, literacy, decrease access to med. care, correction, rehab)? @ -none Was there de-escalation of care discussed even if they declined (Discuss DNR or withdrawal of care, Hospice)? DNR status @ -no What co-morbidities impacted this encounter? (DM, HTN, Smoking, COPD, CAD, Cancer, CVA, ARF, Chemo, Hep., AIDS, mental health diagnosis, sleep apnea, morbid obesity)? @ -none Was patient admitted / discharged? Hospital course, mention meds given and route, prescriptions, significant lab abnormalities, going to OR and other pertinent info. @ - 34 male well-known to this ER coming in for foot pain and swelling. Patient has mild cellulitis of the toe placed on antibiotics and can be discharged Discharge Undiagnosed new problem with uncertain prognosis? @ -no Drug Therapy requiring intensive monitoring for toxicity (Heparin, Nitro, Insulin, Cardizem)? @ -no Were any procedures done? @ -no Diagnosis/symptom? @ -Left toe cellulitis Acute, or Chronic, or Acute on Chronic? @ -Acute Uncomplicated (without systemic symptoms) or Complicated (systemic symptoms)? @ -Complicated Side effects of treatment? @ -no Exacerbation, Progression, or Severe Exacerbation? @ -exacerbation Poses a threat to life or bodily function? How? (Chest pain, [place], [place], pneumonia, PE, COPD, DKA, ARF, appy, cholecystitis, CVA, Diverticulitis, Homicidal, S uicidal, threat to staff... and all critical care pts) @ -no Medical Decision Making - Medical Decision Making 34 male well-known to this ER coming in for foot pain and swelling. Patient has mild cellulitis of the toe placed on antibiotics and can be discharged - Radiology Data Radiology results: report reviewed (X-ray foot negative for acute disease), image reviewed Disposition Clinical Impression: Toe sprain, Cellulitis of left toe Disposition: HOME SELF-CARE Condition: Good Instructions (If sedation given, give patient instructions): Cellulitis (ED) Prescriptions: Cephalexin [Keflex] 500 mg PO TID #21 cap Is patient prescribed a controlled substance at d/c from ED?: No Referrals: None,Stated [Primary Care Provider] - 1-2 days Time of Disposition: 19:00
--- NOTE | 2024-10-14 18:44 | XR ---
EXAMINATION TYPE: XR foot complete LT DATE OF EXAM: 10/14/2024 6:38 PM COMPARISON: None. CLINICAL INDICATION: Male, 34 years old with history of pain, numbness up to knee TECHNIQUE: 3 view(s) obtained. FINDINGS: No acute fracture or dislocation evident. Joint spaces are preserved. Some hallux valgus deformity is present. Soft tissues are normal. Achilles tendon calcaneal heel spur is present. Follow-up exams can be performed 7-10 days from acute trauma for continued pain. IMPRESSION: 1. No acute osseous abnormality left foot [facility], , 10/14/2024 6:41 PM
[2024-10-14] MEDS: CEPHALEXIN 500MG STARTER PACK 4 CAP BTL PO STA (19:59)
[2024-10-14] MEDS: CEPHALEXIN 500 MG CAP PO STA (19:59)
[2024-10-14 20:02] VITALS: BP 139/83; PULSE 78; TEMP 98.4
== END 2024-10-14 20:02 | disposition home or self-care (01) ==
LOC: EC 16:52
DX: S93.502A Unspecified sprain of left great toe, initial encounter (principal); L03.032 Cellulitis of left toe; F17.290 Nicotine dependence, other tobacco product, uncomplicated; Z88.0 Allergy status to penicillin; Z88.2 Allergy status to sulfonamides; Z88.5 Allergy status to narcotic agent; Z91.018 Allergy to other foods; X50.0XXA Overexertion from strenuous movement or load, initial encounter
CPT/HCPCS: 99283